=== PATIENT | male | born 1930 | race African-American/Black ===

== ENCOUNTER 2017-02-08 07:55 | Inpatient (IN) | payer MEDICARE, BC, OTHER ==
[~2017-02-08] VITALS: Ht 182.9 cm; Wt 105.2 kg
[2017-02-08] VITALS (10 sets, daily range): BP systolic 149–216; BP diastolic 67–86; PULSE 57–66; RESP 16–20; TEMP 97.5–98.4; O2SAT 96–100
[~2017-02-08 07:55] MED LIST: ASPI81CH5 PO; BUME2TAB PO; BYST10TA2 PO; CARD8TAB6 PO; FISH1000 PO; FLUO.05%ST TOP; IRBE1TAB39 PO; LIPI40TA PO; MAGN1SOL2 PO; MIRA33502 PO; MULTCAP14 PO; POLY119S PO; PRIL20CA PO; PROC60TA PO; SENN-29 PO; ULOR40TA PO; ULTR50TA PO; VITD400 PO; XALA0.00 EACH EYE
[2017-02-08] MEDS ORDERED: FISH500C PO (08:24)
[2017-02-08] MEDS ORDERED: NIFE1TAB85 PO (08:24)
[2017-02-08] MEDS ORDERED: CARD8TAB2 PO (08:24)
[2017-02-08] MEDS ORDERED: CHOL100025 CHEW (08:24)
[2017-02-08] MEDS ORDERED: LATA0.002 EACH EYE (08:24)
[2017-02-08] MEDS ORDERED: THER50TA3 PO (08:24)
[2017-02-08] MEDS ORDERED: BUME2TAB PO (08:24)
[2017-02-08] MEDS ORDERED: ASPI81CH CHEW (08:24)
[2017-02-08] MEDS ORDERED: LIPI40TA PO (08:24)
[2017-02-08] MEDS ORDERED: ULOR40TA PO (08:24)
[2017-02-08] MEDS ORDERED: OMEP20TA PO (08:24)
[2017-02-08] MEDS ORDERED: IRBE300T44 PO (08:24)
[2017-02-08] MEDS ORDERED: SODIUM CHLORIDE 0.9% FLUSH 10 ML FLUSH IV FLUSH PRN (08:45)
--- NOTE | 2017-02-08 08:46 | PD ---
HPI Chief Complaint: Abdominal Pain Time Seen by Provider: 08:40 Travel History International Travel<30 days: No Contact w/Intl Traveler<30days: No Traveled to known affect area: No History of Present Illness HPI Patient presents with acute onset of lower abdominal pain yesterday afternoon after a bowel movement. Reports increased flatulence over the last week. States his bowels are not normal but can be no more specific than that. Denies any urinary symptoms. Taking fluids and food by mouth. Pain is dull with occasional sharp pain 8 out of 10. Large vertical surgical scar noted to the right of midline which patient states was from an appendectomy in the s. History of renal failure on dialysis. Next dialysis scheduled for 9 AM tomorrow. PFSH Past Medical History Arthritis: Yes Cancer: No Cardiovascular Problems: Yes High Cholesterol: Yes Diabetes: Yes Patient Takes Glucophage: No Dialysis: Yes Diminished Hearing: No Endocrine: No Gastrointestinal Disorders: Yes (REFLUX) GERD: Yes Genitourinary: No Hepatitis: No Hiatal Hernia: No Hypertension: Yes Immune Disorder: No Musculoskeletal: Yes (ARTHRITIS) Neurologic: No Psychiatric: No Reproductive: No Respiratory: Yes (SLEEP APNEA) Renal Failure: Yes Sleep Apnea: Yes Thyroid Disease: No Influenza Vaccination: No Past Surgical History Abdominal Surgery: Yes (APPEND., ) AICD: No Appendectomy: Yes (1980) Eye Surgery: Yes (CATARACT BILAT.) Joint Replacement: Yes (RIGHT KNEE) Pacemaker: No Social History Alcohol Use: Yes (ONCE A MONTH) Tobacco Use: No Substance Use: No Allergies-Medications (Allergen,Severity, Reaction): Coded Allergies: Darvocet-N 100 (Verified Allergy, Intermediate, ITCHING, 02/08/17) Ibuprofen (Verified Allergy, Intermediate, swelling, itching, 02/08/17) Morphine (Verified Allergy, Intermediate, itch, 02/08/17) Reported Meds & Prescriptions Reported Meds & Active Scripts Active Reported Vitamin D3 (Cholecalciferol) 1,000 Unit Chew 1,000 Units CHEW DAILY Theragran-M Premier 50+ Caplet (Mv-Mn/FA/Coq10/Lycopene/Lutein) 1 Each Tablet 1 Tab PO DAILY Fish Oil ([place]-3 Fatty Acids) 500 Mg Cap 1 Cap PO DAILY Latanoprost Opth Drops (Latanoprost) 0.005% Drops 1 Drop EACH EYE HS Refrigerate until opened. Aspirin 81 Mg Chew 81 Mg CHEW DAILY Omeprazole 20 Mg Tab 20 Mg PO DAILY Uloric (Febuxostat) 40 Mg Tab 1 Tab PO DAILY Bumetanide 2 Mg Tab 4 Mg PO BID Lipitor (Atorvastatin Calcium) 40 Mg Tab 40 Mg PO HS Procardia XL (Nifedipine) 30 Mg Tab 30 Mg PO DAILY Cardura (Doxazosin Mesylate) 8 Mg Tab 8 Mg PO HS Avapro (Irbesartan) 300 Mg Tab 300 Mg PO DAILY Review of Systems General / Constitutional: No: Fever Eyes: No: Visual changes HENT: No: Headaches Cardiovascular: No: Chest Pain or Discomfort Respiratory: No: Shortness of Breath Gastrointestinal: Positive: Abdominal Pain Genitourinary: No: Dysuria Musculoskeletal: No: Pain Skin: No Rash Neurologic: No: Weakness Psychiatric: No: Depression Endocrine: No: Polydipsia Hematologic/Lymphatic: No: Easy Bruising Physical Exam Narrative GENERAL: Well-nourished, well-developed patient. SKIN: Focused skin assessment warm/dry. HEAD: Normocephalic. EYES: No scleral icterus. No injection or drainage. NECK: Supple, trachea midline. No JVD or lymphadenopathy. CARDIOVASCULAR: Regular rate and rhythm without murmurs, gallops, or rubs. RESPIRATORY: Breath sounds equal bilaterally. No accessory muscle use. GASTROINTESTINAL: Abdomen soft, diffusely tender across the lower abdomen, distended. MUSCULOSKELETAL: No cyanosis, or edema. BACK: Nontender without obvious deformity. No CVA tenderness. Data Data Last Documented VS Vital Signs Date Time Temp Pulse Resp B/P Pulse Ox O2 Delivery O2 Flow Rate FiO2 02/08/17 11:33 57 20 170/86 97 02/08/17 08:01 98.2 Room Air Orders Complete Blood Count With Diff (02/08/17 08:40) Comprehensive Metabolic Panel (02/08/17 08:40) Lipase (02/08/17 08:40) Lactic Acid (02/08/17 08:40) Urinalysis - C+S If Indicated (02/08/17 08:40) Ct Abd/Pel W Iv Contrast(Rout) (02/08/17 08:40) Iv Access Insert/Monitor (02/08/17 08:40) Ecg Monitoring (02/08/17 08:40) Oximetry (02/08/17 08:40) NPO (02/08/17 08:40) Sodium Chloride 0.9% Flush (Ns Flush) (02/08/17 08:45) Iohexol 350 Inj (Omnipaque 350 Inj) (02/08/17 10:32) Aspirin Chew (Aspirin Chew) (02/09/17 09:00) Atorvastatin (Lipitor) (02/08/17 21:00) Doxazosin (Cardura) (02/08/17 21:00) Latanoprost 0.005% Opth Soln (Xalatan 0. (02/08/17 21:00) Nifedipine Sr (Procardia Xl) (02/09/17 09:00) Patient Own Medication (02/09/17 09:00) Losartan (Cozaar) (02/09/17 09:00) Pantoprazole (Protonix) (02/09/17 09:00) Admit Order (Ed Use Only) (02/08/17 ) Diet Npo (02/08/17 Lunch) Activity Bed Rest With Brp (02/08/17 11:53) ^ Saline Lock (02/08/17 11:53) Resp Oxygen Kevin C Titrat 1-4 L (02/08/17 ) Notify Dr: Other (02/08/17 11:53) Consult Nephrology (02/08/17 11:53) Labs Laboratory Tests Test 02/08/17 08:55 White Blood Count 7.7 TH/MM3 Red Blood Count 3.32 MIL/MM3 Hemoglobin 10.7 GM/DL Hematocrit 32.9 % Mean Corpuscular Volume 98.9 FL Mean Corpuscular Hemoglobin 32.3 PG Mean Corpuscular Hemoglobin 32.6 % Concent Red Cell Distribution Width 12.8 % Platelet Count 263 TH/MM3 Mean Platelet Volume 8.8 FL Neutrophils (%) (Auto) 83.0 % Lymphocytes (%) (Auto) 9.9 % Monocytes (%) (Auto) 6.7 % Eosinophils (%) (Auto) 0.0 % Basophils (%) (Auto) 0.4 % Neutrophils # (Auto) 6.4 TH/MM3 Lymphocytes # (Auto) 0.8 TH/MM3 Monocytes # (Auto) 0.5 TH/MM3 Eosinophils # (Auto) 0.0 TH/MM3 Basophils # (Auto) 0.0 TH/MM3 CBC Comment DIFF FINAL Differential Comment Sodium Level 139 MEQ/L Potassium Level 4.2 MEQ/L Chloride Level 104 MEQ/L Carbon Dioxide Level 25.9 MEQ/L Anion Gap 9 MEQ/L Blood Urea Nitrogen 24 MG/DL Creatinine 7.20 MG/DL Estimat Glomerular Filtration 9 ML/MIN Rate Random Glucose 108 MG/DL Lactic Acid Level 1.1 mmol/L Calcium Level 9.9 MG/DL Total Bilirubin 0.5 MG/DL Aspartate Amino Transf 15 U/L (AST/SGOT) Alanine Aminotransferase 12 U/L (ALT/SGPT) Alkaline Phosphatase 59 U/L Total Protein 7.3 GM/DL Albumin 3.6 GM/DL Lipase 140 U/L [facility] Medical Decision Making Medical Screen Exam Complete: Yes Emergency Medical Condition: Yes Differential Diagnosis Colitis, diverticulitis, small bowel obstruction, UTI, adhesions Narrative Course Assessment and plan discussed with patient and at bedside. Last 72 hours Impressions Abdomen/Pelvis CT 02/08/17 0840 Signed Impressions: Service Date/Time: Wednesday, February 08, 2017 10:15 - CONCLUSION: 1. Findings of concern for early or partial small bowel obstruction in the distal to mid ileum. No visualized mass is identified. 2. The kidneys are small and atrophic in appearance with no hydronephrosis. 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 3. No free air or fluid. Dayron Dan MD Physician Communication Physician Communication Spoke with Dr. Boyce who is in agreement will admit for observation Diagnosis Primary Impression: SBO (small bowel obstruction) Perry Phelps MD Feb 08, 2017 08:46
[2017-02-08 09:03] LABS: AUTOMATED NEUTROPHIL # 6.4 TH/MM3 (1.8-7.7); BASOPHIL % 0.4 % (0.0-2.0); HEMATOCRIT 32.9 % (39.0-51.0); LYMPH % 9.9 % (9.0-44.0); LYMPHOCYTE # 0.8 TH/MM3 (1.0-4.8); MEAN CELL VOLUME 98.9 FL (80.0-100.0); MEAN CORPUSCULAR HEMOGLOBIN 32.3 PG (27.0-34.0); MEAN CORPUSCULAR HGB CONC 32.6 % (32.0-36.0); MONO % 6.7 % (0.0-8.0); PLATELET COUNT 263 TH/MM3 (150-450); RED BLOOD COUNT 3.32 MIL/MM3 (4.50-5.90); RED CELL DISTRIBUTION WIDTH 12.8 % (11.6-17.2); WHITE BLOOD COUNT 7.7 TH/MM3 (4.0-11.0)
[2017-02-08 09:07] LABS: HEMO FLAGS DIFF FINAL
[2017-02-08 09:10] LABS: CHLORIDE 104 MEQ/L (98-107); POTASSIUM 4.2 MEQ/L (3.5-5.1); SODIUM (NA) 139 MEQ/L (136-145)
[2017-02-08 09:14] LABS: ANION GAP 9 MEQ/L (5-15); BICARBONATE 25.9 MEQ/L (21.0-32.0); BLOOD UREA NITROGEN 24 MG/DL (7-18)
[2017-02-08 09:17] LABS: ALT (GPT) 12 U/L (12-78); AST (GOT) 15 U/L (15-37); GLOMERULAR FILTRATION RATE 9 ML/MIN (>89)
[2017-02-08 09:19] LABS: TOTAL BILIRUBIN ADULT 0.5 MG/DL (0.2-1.0)
[2017-02-08 09:20] LABS: ALKALINE PHOSPHATASE 59 U/L (45-117)
[2017-02-08] MEDS ORDERED: IOHEXOL 350 MG/ML 10 ML VIAL (for RAD DIAG) IV ONE (10:32)
--- NOTE | 2017-02-08 10:44 | RADRPT ---
EXAM DATE/TIME: 02/08/2017 10:15 [place] COMPARISON: No previous studies available for comparison. INDICATIONS : Lower abdominal pain and nausea. IV CONTRAST: 95 cc Omnipaque 350 (iohexol) IV ORAL CONTRAST: No oral contrast ingested. RADIATION DOSE: 20.32 CTDIvol (mGy) MEDICAL HISTORY : Hypertension. Diabetes. Renal failure-dialysis SURGICAL HISTORY : Appendectomy. ENCOUNTER: Initial ACUITY: 2 days PAIN SCALE: 4/10 LOCATION: Bilateral lower quadrant TECHNIQUE: Volumetric scanning of the abdomen and pelvis was performed. Using automated exposure control and ad justment of the mA and/or kV according to patient size, radiation dose was kept as low as reasonably achievable to obtain optimal diagnostic quality images. DICOM format image data is available electro nically for review and comparison. FINDINGS: LOWER LUNGS: The visualized lower lungs are clear. LIVER: Homogeneous density without lesion. There is no dilation of the biliary tree. No calcified gallston es. SPLEEN: Normal size without lesion. PANCREAS: Within normal limits. KIDNEYS: The kidneys are small and atrophic in appearance with no renal calculi or obstruction. 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 ADRENAL GLANDS: Within normal limits. VASCULAR: There is no aortic aneurysm. BOWEL/MESENTERY: The stomach is mildly distended with fluid. There are multiple loops of nondilated air-containing sma ll bowel with multiple air-fluid levels. The distal ileum and colon are decompressed. There is an henry arent transition zone in the right lower quadrant in the mid to distal ileum with no focal mass. ABDOMINAL WALL: Within normal limits. RETROPERITONEUM: There is no lymphadenopathy. BLADDER: No wall thickening or mass. REPRODUCTIVE: Within normal limits. INGUINAL: There is no lymphadenopathy or hernia. MUSCULOSKELETAL: Degenerative changes are noted in the left hip with subchondral cyst formation. There is mild scolios is and degenerative changes in the lumbar spine. CONCLUSION: 1. Findings of concern for early or partial small bowel obstruction in the distal to mid ileum. No vi sualized mass is identified. 2. The kidneys are small and atrophic in appearance with no hydronephrosis. There is partial duplicat ion of left collecting system. 3. No free air or fluid. Dayron Dan MD on February 08, 2017 at 10:36 Board Certified Radiologist. This report was verified electronically.
[2017-02-08] MEDS ORDERED: D5-1/2 NS + KCL 20 MEQ INJ 1,000 ML IV SCH (11:54)
[2017-02-08] MEDS ORDERED: ACETAMINOPHEN 650 MG SUPP RECTAL PRN (12:00)
[2017-02-08] MEDS ORDERED: ONDANSETRON HCL 4 MG/2 ML VIAL IV PRN (12:00)
[2017-02-08] MEDS: cloNIDine HCL 0.1 MG TAB PO PRN ×2 (14:37→20:08)
[2017-02-08] MEDS: DEXT 5%-NACL 0.9% 1000 ML INJ 1,000 ML IV SCH (14:43)
--- NOTE | 2017-02-08 14:59 | HHI.HP ---
[facility] Derek Juarez MD Admission Diagnosis PSBO Diagnoses: Chief Complaint: Abdominal pain Travel History International Travel<30 Days: No Contact w/Intl Traveler <30 Da: No Traveled to Known Affected Are: No History of Present Illness 87-year-old male with a medical history significant for end-stage renal disease on hemodialysis, hypertension, osteoarthritis who presented to the hospital with complaint of abdominal pain. He reports that his abdomen has not felt right for the past 2 days. He took senna laxative yesterday and had a bowel movement but he continued to have intermittent abdominal cramps. He endorsed some nausea but no vomiting. No fevers or chills. Workup in the emergency room revealed partial small bowel obstruction. Review of Systems Constitutional: DENIES: Fever, Chills Respiratory: DENIES: Cough, Shortness of breath Cardiovascular: DENIES: Chest pain Gastrointestinal: COMPLAINS OF: Abdominal pain, Constipation, Nausea, DENIES: Black stools, Bloody stools, Diarrhea, Vomiting Except as stated in HPI: all other systems reviewed are Neg Past Family Social History Past Medical History end-stage renal disease on hemodialysis hypertension osteoarthritis Past Surgical History Appendectomy in the 80s Right knee arthroplasty Reported Medications Reported Meds & Active Scripts Active Reported Vitamin D3 (Cholecalciferol) 1,000 Unit Chew 1,000 Units CHEW DAILY Theragran-M Premier 50+ Caplet (Mv-Mn/FA/Coq10/Lycopene/Lutein) 1 Each Tablet 1 Tab PO DAILY Fish Oil ([place]-3 Fatty Acids) 500 Mg Cap 1 Cap PO DAILY Latanoprost Opth Drops (Latanoprost) 0.005% Drops 1 Drop EACH EYE HS Refrigerate until opened. Aspirin 81 Mg Chew 81 Mg CHEW DAILY Omeprazole 20 Mg Tab 20 Mg PO DAILY Uloric (Febuxostat) 40 Mg Tab 1 Tab PO DAILY Bumetanide 2 Mg Tab 4 Mg PO BID Lipitor (Atorvastatin Calcium) 40 Mg Tab 40 Mg PO HS Procardia XL (Nifedipine) 30 Mg Tab 30 Mg PO DAILY Cardura (Doxazosin Mesylate) 8 Mg Tab 8 Mg PO HS Avapro (Irbesartan) 300 Mg Tab 300 Mg PO DAILY Allergies: Coded Allergies: Darvocet-N 100 (Verified Allergy, Intermediate, ITCHING, 02/08/17) Ibuprofen (Verified Allergy, Intermediate, swelling, itching, 02/08/17) Morphine (Verified Allergy, Intermediate, itch, 02/08/17) Family History Father of heart disease. 2 brothers of complications from diabetes. Social History No tobacco or alcohol Physical Exam Vital Signs Vital Signs Date Time Temp Pulse Resp B/P Pulse Ox O2 Delivery O2 Flow Rate FiO2 02/08/17 14:00 97.5 59 19 216/85 97 186/80 02/08/17 11:33 57 20 170/86 97 02/08/17 10:42 59 20 149/67 98 02/08/17 09:53 63 18 160/74 97 02/08/17 09:01 60 20 158/71 97 02/08/17 08:58 96 02/08/17 08:01 98.2 66 16 172/75 98 Room Air Physical Exam GENERAL: Elderly male in no apparent distress. SKIN: No rashes, ecchymoses or lesions. Cool and dry. HEAD: Atraumatic. Normocephalic. No temporal or scalp tenderness. EYES: Pupils equal round and reactive. Extraocular motions intact. No scleral icterus. No injection or drainage. ENT: Nose without bleeding, purulent drainage or septal hematoma. Throat without erythema, tonsillar hypertrophy or exudate. Uvula midline. Airway patent. NECK: Trachea midline. No JVD or lymphadenopathy. Supple, nontender, no meningeal signs. CARDIOVASCULAR: Regular rate and rhythm without murmurs, gallops, or rubs. RESPIRATORY: Clear to auscultation. Breath sounds equal bilaterally. No wheezes , rales, or rhonchi. GASTROINTESTINAL: Abdomen soft, mild tenderness to palpation mostly in the periumbilical region. No guarding. MUSCULOSKELETAL: Extremities without clubbing, cyanosis, or edema. No joint tenderness, effusion, or edema noted. No calf tenderness. Negative Homans sign bilaterally. NEUROLOGICAL: Awake and alert. Cranial nerves II through XII intact. Motor and sensory grossly within normal limits. Five out of 5 muscle strength in all muscle groups. Normal speech. Laboratory Laboratory Tests Test 02/08/17 08:55 White Blood Count 7.7 Red Blood Count 3.32 Hemoglobin 10.7 Hematocrit 32.9 Mean Corpuscular Volume 98.9 Mean Corpuscular Hemoglobin 32.3 Mean Corpuscular Hemoglobin 32.6 Concent Red Cell Distribution Width 12.8 Platelet Count 263 Mean Platelet Volume 8.8 Neutrophils (%) (Auto) 83.0 Lymphocytes (%) (Auto) 9.9 Monocytes (%) (Auto) 6.7 Eosinophils (%) (Auto) 0.0 Basophils (%) (Auto) 0.4 Neutrophils # (Auto) 6.4 Lymphocytes # (Auto) 0.8 Monocytes # (Auto) 0.5 Eosinophils # (Auto) 0.0 Basophils # (Auto) 0.0 CBC Comment DIFF FINAL Differential Comment Sodium Level 139 Potassium Level 4.2 Chloride Level 104 Carbon Dioxide Level 25.9 Anion Gap 9 Blood Urea Nitrogen 24 Creatinine 7.20 Estimat Glomerular Filtration 9 Rate Random Glucose 108 Lactic Acid Level 1.1 Calcium Level 9.9 Total Bilirubin 0.5 Aspartate Amino Transf 15 (AST/SGOT) Alanine Aminotransferase 12 (ALT/SGPT) Alkaline Phosphatase 59 Total Protein 7.3 Albumin 3.6 Lipase 140 Result Diagram: 02/08/17 0855 02/08/17 0855 Imaging Last Impressions Abdomen/Pelvis CT 02/08/17 0840 Signed Impressions: Service Date/Time: Wednesday, February 08, 2017 10:15 - CONCLUSION: 1. Findings of concern for early or partial small bowel obstruction in the distal to mid ileum. No visualized mass is identified. 2. The kidneys are small and atrophic in appearance with no hydronephrosis. 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 3. No free air or fluid. Dayron Dan MD Assessment and Plan Problem List: (1) SBO (small bowel obstruction) ICD Code: K56.69 Status: Acute Plan: CT scan Findings concerning for bowel obstruction in the distal to mid ileum Symptoms are currently mild. NPO, gentle IV fluid Pain control Stool softeners and laxatives. Monitor clinically. (2) ESRD (end stage renal disease) on dialysis ICD Code: N18.6 Status: Acute Plan: Nephrology consulted. Next hemodialysis is due tomorrow. (3) HTN (hypertension) ICD Code: I10 Status: Acute Plan: Uncontrolled. Continue losartan, nifedipine, clonidine as needed. Discussed with RN, he was just given a dose of clonidine. Blood pressure improving. Discussed Condition With Bandar Childs MD Feb 08, 2017 14:59
[2017-02-08] MEDS ORDERED: LACTULOSE SYRUP 20 GM/30 ML CUP PO ONE (15:00)
[2017-02-08] MEDS ORDERED: MAGNESIUM HYDROXIDE SUSP 30 ML CUP PO PRN (15:15)
[2017-02-08] MEDS ORDERED: LACTULOSE SYRUP 20 GM/30 ML CUP PO PRN (15:15)
[2017-02-08] MEDS ORDERED: BISACODYL 10 MG SUPP RECTAL PRN (15:15)
--- NOTE | 2017-02-08 15:53 | MB ---
cc: MUSTAPHA PLUMMER MD DATE OF CONSULTATION: 02/08/2017. REASON FOR CONSULTATION: End-stage renal disease on hemodialysis for management. HISTORY OF PRESENT ILLNESS: This is an 87-year-old male with past medical history of end-stage renal disease who has been on hemodialysis since 2014, history of ischemic heart disease, hyperlipidemia, diabetes mellitus, gastroesophageal reflux disease, hypertension, sleep apnea, who came to the hospital with complaint of abdominal pain. I was called to see the patient for management of dialysis. He has been on hemodialysis on Thursday, Thursday and Thursday and has following with Dr. Derek Juarez. The last treatment he had was on Thursday. He has had this abdominal pain going on for the last two to three days. There is no history of diarrhea. His last bowel movement was about four or five days ago. There is no history of nausea or vomiting. He is still passing some urine. There is no dysuria or hematuria. The abdominal pain is intermittent and around the umbilicus and also on the right iliac fossa. There is no shortness of breath. No chest pain. No palpitations. PAST MEDICAL HISTORY: 1. Hypertension. 2. Diabetes mellitus. 3. Hyperlipidemia. 4. Ischemic heart disease. 5. End-stage renal disease on hemodialysis. 6. Gastroesophageal reflux disease (GERD). 7. Sleep apnea. PAST SURGICAL HISTORY: 1. Appendectomy. 2. Cataract surgery. 3. AV fistula surgery. 4. Right knee replacement. REVIEW OF SYSTEMS: There is no history of fever. No sore throat. He denies any headache, dizziness or blurring of vision. No shortness of breath. No chest pain. No nausea or vomiting. He has had abdominal pain, which is mainly cramping in nature. There is no history of diarrhea. He has had constipation for the last four or five days. There is no dysuria or hematuria or difficulty in passing urine. SOCIAL HISTORY: The patient has no history of smoking. He occasionally has alcoholic beverages. FAMILY HISTORY: The family history is noncontributory. ALLERGIES: 1. DARVOCET. 2. IBUPROFEN. 3. MORPHINE. MEDICATIONS: Currently he is on: 1. IV fluids with potassium chloride at 75 an hour. 2. Aspirin 81 milligrams once a day. 3. Nifedipine 30 milligrams daily. 4. Losartan 100 milligrams once a day. 5. Protonix 20 milligrams daily. 6. Atorvastatin 40 milligrams once a day. 7. Cozaar 80 milligrams at bedtime. 8. Zofran 4 milligrams PRN. PHYSICAL EXAMINATION: GENERAL: On examination, the patient is awake and alert and he is not in acute distress. VITAL SIGNS: His last blood pressure was 216/85, temperature is 97.5, oxygen saturation is 97%. HEAD, EYES, EARS, NOSE, THROAT: The pupils are equal and reacting to light. Nonicteric sclerae. Conjunctivae are pale. NECK: The neck is supple. JVD is not elevated. LUNGS: The patient has bilateral good air entry with occasional wheezing. HEART: S1 and S2 regular rhythm. ABDOMEN: Abdomen distended, soft and lax. There is an umbilical hernia which is reducible. There is a scar of right sided appendectomy. There is mild tenderness around the right scar in the right iliac fossa but there is no rebound or rigidity. Bowel sounds are positive. EXTREMITIES: There is no edema in the legs. INVESTIGATIONS: White blood cell count is 7.7, hemoglobin 10.7, platelet count of 263,000. Neutrophils 83%. Sodium 139, potassium 4.2, chloride 104, bicarbonate 25.9, BUN 24, creatinine 7.2, calcium 9.9, lactic acid is 1.1. AST and ALT are normal. Total protein is 7.3 with albumin of 3.6. Lipase is 140. INR is 1.0. Urinalysis not done. IMAGING STUDIES: The patient had CT scan of the abdomen and pelvis done, which showed that he has early or partial small bowel obstruction at the distal to mid ileum. The kidneys are small and atrophic. 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 No free air. ASSESSMENT: 1. Abdominal pain, possible partial small bowel obstruction. 2. End-stage renal disease on hemodialysis. 3. Hypertension, uncontrolled. 4. History of ischemic heart disease. 5. Anemia. The patient has been diagnosed with possible small bowel obstruction. He is NPO. His getting IV fluids with dextrose with potassium chloride. I will change it to without potassium chloride. The blood pressure is on the higher side. He is on Cozaar 100 mg an nifedipine 30 mg daily. I will put him on clonidine p.r.n. and increase his nifedipine to 90 mg. The patient is due for hemodialysis tomorrow. There is no acute urgent need for dialysis at present. I will ask Dr. Maki to follow the patient from tomorrow. Thank you for the consultation MD GENARO Church/ANDERSON /2:09 PM /3:28 PM
[2017-02-08] MEDS: DOXAZOSIN MESYLATE 4 MG TAB PO SCH (20:08)
[2017-02-08] MEDS: ATORVASTATIN 40 MG TAB PO SCH (20:08)
[2017-02-08] MEDS: DOCUSATE SODIUM 50 MG/SENNA 8.6 MG TAB PO SCH (20:09)
[2017-02-08] MEDS: LATANOPROST 0.005% OPHT SOLN 2.5 ML BTL EACH EYE SCH (20:53)
[2017-02-09] VITALS (7 sets, daily range): BP systolic 149–189; BP diastolic 74–90; PULSE 58–104; RESP 16–20; TEMP 97–98.2; O2SAT 94–98
[2017-02-09 06:51] LABS: POTASSIUM 4.4 MEQ/L (3.5-5.1)
[2017-02-09 06:53] LABS: AUTOMATED NEUTROPHIL # 6.1 TH/MM3 (1.8-7.7); BASOPHIL % 0.2 % (0.0-2.0); HEMO FLAGS DIFF FINAL; LYMPH % 16.5 % (9.0-44.0); LYMPHOCYTE # 1.3 TH/MM3 (1.0-4.8); MEAN CELL VOLUME 99.6 FL (80.0-100.0); MEAN CORPUSCULAR HGB CONC 32.2 % (32.0-36.0); MONO % 8.7 % (0.0-8.0); NEUT % 74.6 % (16.0-70.0); PLATELET COUNT 240 TH/MM3 (150-450); RED BLOOD COUNT 3.32 MIL/MM3 (4.50-5.90); RED CELL DISTRIBUTION WIDTH 12.9 % (11.6-17.2); WHITE BLOOD COUNT 8.1 TH/MM3 (4.0-11.0)
[2017-02-09 07:08] LABS: BICARBONATE 25.2 MEQ/L (21.0-32.0)
[2017-02-09] MEDS: LOSARTAN 50 MG TAB PO SCH (07:43)
[2017-02-09] MEDS: NIFEdipine 90 MG SUSTAINED RELEASE TAB PO SCH (09:00)
[2017-02-09] MEDS ORDERED: COQ10 PO SCH (09:00)
[2017-02-09] MEDS ORDERED: NIFEdipine 30 MG SUSTAINED RELEASE TAB PO SCH (09:00)
[2017-02-09] MEDS ORDERED: NON-FORMULARY DRUG (Omega-3 Fatty Acids (Fish Oil) 1 CAP) PO SCH (09:00)
[2017-02-09] MEDS ORDERED: [UNRECOGNIZED DRUG - OTHER] PO SCH (09:00)
[2017-02-09] MEDS: DOCUSATE SODIUM 50 MG/SENNA 8.6 MG TAB PO SCH ×2 (09:00→21:56)
[2017-02-09] MEDS ORDERED: ULORIC 40 MG PO SCH (09:00)
[2017-02-09] MEDS ORDERED: MV MN PO SCH (09:00)
[2017-02-09] MEDS: ASPIRIN 81 MG CHEW TAB CHEW SCH (09:00)
[2017-02-09] MEDS ORDERED: LYCOPENE PO SCH (09:00)
[2017-02-09] MEDS: PANTOPRAZOLE SOD 20 MG DELAYED RELEASE TAB PO SCH (09:00)
[2017-02-09] MEDS ORDERED: LUTEIN PO SCH (09:00)
--- NOTE | 2017-02-09 09:32 | HHI.PR ---
Subjective Remarks Patient reportedly had 2 bowel movements last night. He reports the abdominal pain is improved this morning. However the KUB actually showed worsening bowel distention, increased from yesterday with concern for distal obstruction. No nausea or vomiting. Objective Vitals Vital Signs Date Time Temp Pulse Resp B/P Pulse Ox O2 Delivery O2 Flow Rate FiO2 02/09/17 04:01 97.6 58 20 168/76 97 02/09/17 00:57 97.1 73 16 179/90 98 02/08/17 20:51 98.4 59 18 180/71 96 02/08/17 16:00 97.9 60 18 194/81 100 182/78 02/08/17 14:59 100 21 02/08/17 14:00 97.5 59 19 216/85 97 186/80 02/08/17 11:33 57 20 170/86 97 02/08/17 10:42 59 20 149/67 98 02/08/17 09:53 63 18 160/74 97 I/O 02/08/17 02/08/17 02/08/17 02/09/17 02/09/17 02/09/17 06:59 14:59 22:59 06:59 14:59 22:59 Intake Total 336 ml 336 ml Balance 336 ml 336 ml Intake IV Total 336 ml 336 ml # Voids 2 Result Diagram: 02/09/17 0533 02/09/17 0533 Imaging Last Impressions Abdomen X-Ray 02/09/17 0000 Signed Impressions: Service Date/Time: Thursday, February 09, 2017 07:44 - CONCLUSION: Abnormally dilated small bowel measuring up to 4.1 cm, slightly increased from yesterday' s examination. Based on the current appearance and yesterday's CT, findings are suspicious for some degree of distal small bowel obstruction. Omid Escobar MD Abdomen/Pelvis CT 02/08/17 0840 Signed Impressions: Service Date/Time: Wednesday, February 08, 2017 10:15 - CONCLUSION: 1. Findings of concern for early or partial small bowel obstruction in the distal to mid ileum. No visualized mass is identified. 2. The kidneys are small and atrophic in appearance with no hydronephrosis. 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 3. No free air or fluid. Dayron Dan MD Objective Remarks GENERAL: This is a well-nourished, well-developed patient, in no apparent distress. CARDIOVASCULAR: Normal rate and regular rhythm without murmurs, gallops, or rubs. RESPIRATORY: Good respiratory efforts. Breath sounds equal and clear to auscultation bilaterally. GASTROINTESTINAL: Abdomen soft, mild tenderness to palpation in the periumbilical region. Normal active bowel sounds MUSCULOSKELETAL: Extremities without cyanosis, or edema. NEURO: Alert & Oriented x4 to person, place, time, situation. Moves all ext x4 PSYCH: Appropriate mood and affect. A/P Problem List: (1) SBO (small bowel obstruction) ICD Code: K56.69 Status: Acute Plan: CT scan Findings concerning for bowel obstruction in the distal to mid ileum. Symptoms are currently mild. However repeat abdominal x-ray this morning show worsening of bowel distention. Keep NPO, gentle IV fluid Pain control Stool softeners and laxatives. Monitor clinically. (2) ESRD (end stage renal disease) on dialysis ICD Code: N18.6 Status: Acute Plan: Nephrology following for HD. Hemodialysis today. (3) HTN (hypertension) ICD Code: I10 Status: Acute Plan: Uncontrolled but improved. Pain may be contributing. Continue losartan, nifedipine, clonidine as needed. Nifedipine increased per nephrology. Discharge Planning Admit to inpatient. He is on hemodialysis, uncontrolled hypertension admitted with a bowel obstruction. Bandar Boyce MD Feb 09, 2017 09:32
--- NOTE | 2017-02-09 09:37 | RADRPT ---
EXAM DATE/TIME: 02/09/2017 07:44 [facility] COMPARISON: CT ABDOMEN & PELVIS W CONTRAST, February 08, 2017, 10:15. INDICATIONS : Abdominal pain; obstruction. MEDICAL HISTORY : Hypertension. Diabetes. Renal failure-dialysis SURGICAL HISTORY : Appendectomy. ENCOUNTER: Subsequent ACUITY: 3 days PAIN SCORE: 7/10 LOCATION: Lower abdomen. FINDINGS: 3 supine frontal views of the abdomen demonstrate abnormally dilated small bowel measuring up to 4.1 cm. There is a small amount of colon gas present. The dilated small bowel appears mildly increased fr om yesterday's examination. No organomegaly is present. There is osteoarthritis at the right hip join t. No acute osseous finding is identified. CONCLUSION: Abnormally dilated small bowel measuring up to 4.1 cm, slightly increased from yesterday's examinatio n. Based on the current appearance and yesterday's CT, findings are suspicious for some degree of dis poppy small bowel obstruction. Omid Escobar MD on February 09, 2017 at 9:14 Board Certified Radiologist. This report was verified electronically.
[2017-02-09] MEDS ORDERED: SODIUM CHLOR 0.9% 1000 ML INJ 1,000 ML IV PRN ×3 (09:38)
[2017-02-09] MEDS ORDERED: ACETAMINOPHEN 325 MG TAB PO PRN (09:45)
[2017-02-09] MEDS ORDERED: HEPARIN SODIUM - IV 10,000 UNITS/10 ML VIAL IVF PRN (09:45)
[2017-02-09] MEDS ORDERED: SODIUM CHLORIDE 0.9% FLUSH 10 ML FLUSH IV FLUSH PRN (09:45)
[2017-02-09] MEDS ORDERED: GENTAMICIN SULFATE (DIALYSIS USE ONLY) 20 MG/2 ML VIAL IV PRN (09:45)
[2017-02-09] MEDS ORDERED: HEPARIN SODIUM - IV 10,000 UNITS/10 ML VIAL PRN (09:45)
[2017-02-09] MEDS ORDERED: ALBUMIN HUMAN 25% 25 GM/100 ML BAGP IV PRN (09:45)
[2017-02-09] MEDS ORDERED: MANNITOL 12.5 GM/50 ML VIAL IV PRN (09:45)
[2017-02-09] MEDS ORDERED: diphenhydrAMINE HCL 25 MG CAP PO PRN (09:45)
[2017-02-09] MEDS ORDERED: GELATIN 12 MM/7 MM FOAM TOP PRN (09:45)
[2017-02-09] MEDS ORDERED: cloNIDine HCL 0.1 MG TAB PO PRN (09:45)
[2017-02-09] MEDS ORDERED: ONDANSETRON HCL 4 MG/2 ML VIAL IV PRN (09:45)
[2017-02-09] MEDS ORDERED: NITROGLYCERIN 0.4 MG SL 25 TABS/BTL SL PRN (09:45)
[2017-02-09] MEDS: DEXT 5%-NACL 0.9% 1000 ML INJ 1,000 ML IV SCH ×2 (14:04→21:56)
[2017-02-09] MEDS: EPOETIN ALFA 10,000 UNITS/ML VIAL IV PRN (15:14)
--- NOTE | 2017-02-09 17:21 | HHI.NPPN ---
Subjective General Problems: Anemia, Hypertension Renal Failure: Chronic, End Stage Renal Disease Interval History Seen during dialysis. He had a BM last night. No reports of pain. (Marlena Ambriz) Objective Data Data 02/08/17 02/09/17 18:59 06:59 Intake Total 672 ml Balance 672 ml Intake IV Total 672 ml # Voids 2 Vital Signs Date Time Temp Pulse Resp B/P Pulse Ox O2 Delivery O2 Flow Rate FiO2 02/09/17 12:00 97.0 104 20 149/77 96 02/09/17 11:34 94 21 02/09/17 08:00 98.2 63 18 160/74 97 Automatic Cuff 02/09/17 04:01 97.6 58 20 168/76 97 02/09/17 00:57 97.1 73 16 179/90 98 02/08/17 20:51 98.4 59 18 180/71 96 (Marlena Ambriz) -: 02/09/17 0533 02/09/17 0533 Imaging Last Impressions Abdomen X-Ray 02/09/17 0000 Signed Impressions: Service Date/Time: Thursday, February 09, 2017 07:44 - CONCLUSION: Abnormally dilated small bowel measuring up to 4.1 cm, slightly increased from yesterday' s examination. Based on the current appearance and yesterday's CT, findings are suspicious for some degree of distal small bowel obstruction. Omid Escobar MD Abdomen/Pelvis CT 02/08/17 0840 Signed Impressions: Service Date/Time: Wednesday, February 08, 2017 10:15 - CONCLUSION: 1. Findings of concern for early or partial small bowel obstruction in the distal to mid ileum. No visualized mass is identified. 2. The kidneys are small and atrophic in appearance with no hydronephrosis. 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 3. No free air or fluid. Dayron Dan MD (Marlena Ambriz) Physical Exam General Appearance: Well Developed, Well Nourished, No Acute Distress, Comfortable ( Marlena Ambriz) Eyes Eye Exam: Pupils Equal (Marlena Ambriz) Throat Throat Exam: Oral Mucosa [place] & Moist (Marlena Ambriz) Neck Neck Exam: Neck Supple (Marlena Ambriz) Pulmonary Resp Exam: Clear Bilaterally, Breath Sounds Equal, No Distress (Marlena Ambriz) Cardiology CV Exam: Regular, Normal Sinus Rhythm, Good Perfusion (Marlena Ambriz) Gastrointestinal/Abdomen GI Exam: Soft, Non-Tender, Bowel Sounds Present, Positive Bowel Movement GI Remarks BM 02/08 (Marlena Ambriz) Musculoskeletal MS Exam: Joints Intact, Good Strength (Marlena Ambriz) Integumentary Skin Exam: Clear, Warm, Dry, Intact (Marlena Ambriz) Extremeties Extremities Exam: Pedal Pulses Palpable, Trace Edema Extremeties Remarks right arm AVF, accessed during HD (Marlena Ambriz) Neurologic Neuro Exam: Alert, Awake, Oriented, Speech Clear, Moving All Extremities ( Marlena Ambriz) Psychiatric Psych Exam: Appropriate Responses (Marlena Ambriz) Assessment/Plan Discussed Condition With: Patient Assessment Summary: Anemia of CKD, Hypertension, End Stage Renal Disease Problem List: (1) ESRD (end stage renal disease) on dialysis Plan: seen during dialysis today on a 3K, 300 BFR, goal 2.6 Liter UF maintain MWF HD schedule while hospitalized phosphorus is acceptable, he is not on binder therapy but has been NPO much of this admission avoid IVF unless NPO, gadolinium is contraindicated stable from renal perspective (2) SBO (small bowel obstruction) Plan: non surgical management he has had a BM (3) HTN (hypertension) Plan: continue home medications (Marlena Ambriz) Plan patient was admitted with abdominal pain. Dialysis will be continued MWF. May need to involve general surgery. (Daniel Maki MD) Marlena Ambriz Feb 09, 2017 17:21 Daniel Maki MD Feb 10, 2017 11:51
[2017-02-09] MEDS: LATANOPROST 0.005% OPHT SOLN 2.5 ML BTL EACH EYE SCH (21:56)
[2017-02-09] MEDS: ATORVASTATIN 40 MG TAB PO SCH (21:57)
[2017-02-09] MEDS: DOXAZOSIN MESYLATE 4 MG TAB PO SCH (21:57)
[2017-02-10] VITALS (7 sets, daily range): BP systolic 157–172; BP diastolic 71–81; PULSE 58–68; RESP 16–20; TEMP 97.5–98.3; O2SAT 94–97
[2017-02-10] MEDS: NIFEdipine 90 MG SUSTAINED RELEASE TAB PO SCH (09:08)
[2017-02-10] MEDS: PANTOPRAZOLE SOD 20 MG DELAYED RELEASE TAB PO SCH (09:08)
[2017-02-10] MEDS: ASPIRIN 81 MG CHEW TAB CHEW SCH (09:08)
[2017-02-10] MEDS: LOSARTAN 50 MG TAB PO SCH (09:08)
[2017-02-10] MEDS: DOCUSATE SODIUM 50 MG/SENNA 8.6 MG TAB PO SCH ×2 (09:08→20:58)
--- NOTE | 2017-02-10 09:24 | HHI.NPPN ---
Subjective General Problems: Anemia, Hypertension Renal Failure: Chronic, End Stage Renal Disease Interval History Sitting up on edge of bed. Reporting multiple bowel movements the past two days. He had dialysis yesterday. NPO at this time. (Marlena Ambriz) Objective Data Data 02/09/17 02/10/17 18:59 06:59 Intake Total 419 ml Output Total 2600 ml Balance -2600 ml 419 ml Intake IV Total 419 ml Output Hemodialysis 2600 ml Vital Signs Date Time Temp Pulse Resp B/P Pulse Ox O2 Delivery O2 Flow Rate FiO2 02/10/17 08:13 98.3 64 19 157/75 94 02/10/17 08:01 97 21 02/10/17 00:00 98.0 58 16 172/71 95 02/09/17 20:00 98.0 67 18 189/85 95 02/09/17 19:45 95 21 02/09/17 12:00 97.0 104 20 149/77 96 02/09/17 11:34 94 21 (Marlena Ambriz) -: 02/09/17 0533 02/09/17 0533 Imaging Last Impressions Abdomen X-Ray 02/09/17 0000 Signed Impressions: Service Date/Time: Thursday, February 09, 2017 07:44 - CONCLUSION: Abnormally dilated small bowel measuring up to 4.1 cm, slightly increased from yesterday' s examination. Based on the current appearance and yesterday's CT, findings are suspicious for some degree of distal small bowel obstruction. Omid Escobar MD Abdomen/Pelvis CT 02/08/17 0840 Signed Impressions: Service Date/Time: Wednesday, February 08, 2017 10:15 - CONCLUSION: 1. Findings of concern for early or partial small bowel obstruction in the distal to mid ileum. No visualized mass is identified. 2. The kidneys are small and atrophic in appearance with no hydronephrosis. 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 3. No free air or fluid. Dayron Dan MD (Marlena Ambriz) Physical Exam General Appearance: Well Developed, Well Nourished, No Acute Distress, Comfortable ( Marlena Ambriz) Eyes Eye Exam: Pupils Equal (Marlena Ambriz) Throat Throat Exam: Oral Mucosa [place] & Moist (Marlena Ambriz) Neck Neck Exam: Neck Supple (Marlena Ambriz) Pulmonary Resp Exam: Clear Bilaterally, Breath Sounds Equal, No Distress (Marlena Ambriz) Cardiology CV Exam: Regular, Normal Sinus Rhythm, Good Perfusion (Marlena Ambriz) Gastrointestinal/Abdomen GI Exam: Soft, Non-Tender, Bowel Sounds Present, Positive Bowel Movement GI Remarks BM 02/08 (Marlena Ambriz) Musculoskeletal MS Exam: Joints Intact, Good Strength (Marlena Ambriz) Integumentary Skin Exam: Clear, Warm, Dry, Intact (Marlena Ambriz) Extremeties Extremities Exam: Pedal Pulses Palpable, Trace Edema Extremeties Remarks right arm AVF, accessed during HD (Marlena Ambriz) Neurologic Neuro Exam: Alert, Awake, Oriented, Speech Clear, Moving All Extremities ( Marlena Ambriz) Psychiatric Psych Exam: Appropriate Responses (Marlena Ambriz) Assessment/Plan Discussed Condition With: Patient Assessment Summary: Anemia of CKD, Hypertension, End Stage Renal Disease Problem List: (1) ESRD (end stage renal disease) on dialysis Plan: 2.6 liters fluid removal yesterday he is NPO on IVF (D5NS), continue maintain MWF HD schedule while hospitalized phosphorus is acceptable, he is not on binder therapy but has been NPO much of this admission avoid IVF unless NPO, gadolinium is contraindicated stable from renal perspective obtain intermittent renal panel (2) SBO (small bowel obstruction) Plan: non surgical management he has had several BMs repeat imaging from yesterday does not show improvement (3) HTN (hypertension) Plan: continue home medications (Marlena Ambriz) Plan patient was seen and examined. Continue dialysis. He apparently has had bowel movements, but there is no documentation. (Daniel Maki MD) Marlena Ambriz Feb 10, 2017 09:24 Daniel Maki MD Feb 10, 2017 11:59
--- NOTE | 2017-02-10 12:03 | RADRPT ---
EXAM DATE/TIME: 02/10/2017 11:16 [facility] COMPARISON: ABDOMEN KUB ONLY, February 09, 2017, 7:44. INDICATIONS : Abdominal pain & distention becoming better after recent bowel movement. MEDICAL HISTORY : Hypercholesterolemia. Hypertension. Diabetes. Renal failure-dialysis. Arthritis. GERD. Sleep ap petra/ SURGICAL HISTORY : Appendectomy. Total knee replacement, right. ENCOUNTER: Subsequent ACUITY: 4 - 6 days PAIN SCORE: 2/10 LOCATION: abdomen FINDINGS: Supine view of the abdomen was performed. There continues to be dilated small bowel throughout the u pper abdomen measuring up to 4 cm. Dilated colon is not seen. Free air is not seen. There is cystic c hange at the right hip joint. CONCLUSION: Persistent dilated small bowel concerning for persistent obstruction. Omid Staley MD on February 10, 2017 at 11:58 Board Certified Radiologist. This report was verified electronically.
--- NOTE | 2017-02-10 14:01 | HHI.PR ---
Subjective Remarks Abdomen is still sore but pain is improved. He states he had a large bowel movement earlier today. No nausea or vomiting. KUB still showing persistent obstruction. Objective Vitals Vital Signs Date Time Temp Pulse Resp B/P Pulse Ox O2 Delivery O2 Flow Rate FiO2 02/10/17 12:21 97.5 64 19 160/76 95 02/10/17 08:13 98.3 64 19 157/75 94 02/10/17 08:01 97 21 02/10/17 00:00 98.0 58 16 172/71 95 02/09/17 20:00 98.0 67 18 189/85 95 02/09/17 19:45 95 21 I/O 02/09/17 02/09/17 02/09/17 02/10/17 02/10/17 02/10/17 07:00 15:00 23:00 07:00 15:00 23:00 Intake Total 336 ml 91 ml 328 ml Output Total 2600 ml Balance 336 ml -2509 ml 328 ml Intake IV Total 336 ml 91 ml 328 ml Output Hemodialysis 2600 ml Result Diagram: 02/09/17 0533 02/09/17 0533 Objective Remarks GENERAL: This is a well-nourished, well-developed patient, in no apparent distress. CARDIOVASCULAR: Normal rate and regular rhythm without murmurs, gallops, or rubs. RESPIRATORY: Good respiratory efforts. Breath sounds equal and clear to auscultation bilaterally. GASTROINTESTINAL: Abdomen soft, mild tenderness to palpation in the periumbilical region. Normal active bowel sounds MUSCULOSKELETAL: Extremities without cyanosis, or edema. NEURO: Alert & Oriented x4 to person, place, time, situation. Moves all ext x4 PSYCH: Appropriate mood and affect. A/P Problem List: (1) SBO (small bowel obstruction) ICD Code: K56.69 Status: Acute Plan: CT scan Findings concerning for bowel obstruction in the distal to mid ileum. Symptoms are currently mild. However repeat abdominal x-ray this morning showing persistent dilated small bowel concerning for persistent obstruction. Keep NPO, gentle IV fluid Pain control Stool softeners and laxatives. Monitor clinically. His symptoms are mild currently, if worsening, will consult general surgery. (2) ESRD (end stage renal disease) on dialysis ICD Code: N18.6 Status: Acute Plan: Nephrology following for HD. Hemodialysis yesterday (3) HTN (hypertension) ICD Code: I10 Status: Acute Plan: Better controlled Continue losartan, nifedipine, clonidine as needed. Nifedipine increased per nephrology. Bandar Boyce MD Feb 10, 2017 14:01
[2017-02-10] MEDS: LATANOPROST 0.005% OPHT SOLN 2.5 ML BTL EACH EYE SCH (20:57)
[2017-02-10] MEDS: DEXT 5%-NACL 0.9% 1000 ML INJ 1,000 ML IV SCH (20:58)
[2017-02-10] MEDS: DOXAZOSIN MESYLATE 4 MG TAB PO SCH (20:58)
[2017-02-10] MEDS: ATORVASTATIN 40 MG TAB PO SCH (20:58)
[2017-02-11] VITALS: BP 151/70; PULSE 66; RESP 20; TEMP 97.2; O2SAT 93
[2017-02-11 06:05] LABS: POTASSIUM 4.3 MEQ/L (3.5-5.1)
[2017-02-11 06:12] LABS: BICARBONATE 27.9 MEQ/L (21.0-32.0)
--- NOTE | 2017-02-11 07:14 | RADRPT ---
EXAM DATE/TIME: 02/11/2017 06:17 [facility] COMPARISON: ABDOMEN KUB ONLY, February 09, 2017, 7:44. ABDOMEN KUB ONLY, February 10, 2017, 11:16. INDICATIONS : Abdominal pain and distention. MEDICAL HISTORY : Hypercholesterolemia. Hypertension. Diabetes. Renal failure-dialysis. GERD. SURGICAL HISTORY : Appendectomy. Total knee replacement, right. ENCOUNTER: Subsequent ACUITY: 4 - 6 days PAIN SCORE: 2/10 LOCATION: all quadrants. FINDINGS: Supine view of the abdomen was performed. The patient has numerous air-filled loops of small bowel me asuring up to 5.2 cm and the left midabdomen. The rest of the abdominal bowel gas pattern is normal. No abnormal masses, calcifications, or organomegaly is seen. The osseous structures are unremarkab le except for arthritic change right hip. CONCLUSION: Continued dilated loops of small bowel in the left midabdomen. Air throughout the colon. Hever Mirza MD on February 11, 2017 at 7:11 Board Certified Radiologist. This report was verified electronically.
[2017-02-11] MEDS: EPOETIN ALFA 10,000 UNITS/ML VIAL IV PRN (07:54)
[2017-02-11 09:00] VITALS: BP 146/69; PULSE 66; RESP 20; TEMP 97.6; O2SAT 97
[2017-02-11] MEDS: PANTOPRAZOLE SOD 20 MG DELAYED RELEASE TAB PO SCH (12:05)
[2017-02-11] MEDS: LOSARTAN 50 MG TAB PO SCH (12:05)
[2017-02-11] MEDS: NIFEdipine 90 MG SUSTAINED RELEASE TAB PO SCH (12:05)
[2017-02-11] MEDS: DOCUSATE SODIUM 50 MG/SENNA 8.6 MG TAB PO SCH (12:05)
[2017-02-11] MEDS: ASPIRIN 81 MG CHEW TAB CHEW SCH (12:05)
[2017-02-11] MEDS ORDERED: DIATRIZOATE MEGLUM/DIATRIZOATE SOD 120 ML BTL (for RAD DIAG) PO ONE (13:30)
[2017-02-11 14:23] VITALS: BP 163/78; PULSE 72; RESP 18; TEMP 97.2; O2SAT 97
[2017-02-11] MEDS ORDERED: NIFE1TAB PO (15:39)
[2017-02-11] MEDS ORDERED: SENN1TAB PO (15:45)
[2017-02-11] MEDS ORDERED: Lactulose Liq PO (15:45)
--- NOTE | 2017-02-11 16:04 | HHI.DCPOC ---
Discharge Care Plan Diagnosis: (1) SBO (small bowel obstruction) (2) HTN (hypertension) (3) ESRD (end stage renal disease) on dialysis Goals to Promote Your Health * To prevent worsening of your condition and complications * To maintain your health at the optimal level Directions to Meet Your Goals Take your medications as prescribed Follow your dietary instruction Follow activity as directed Keep your appointments as scheduled Take your immunizations and boosters as scheduled If your symptoms worsen call your PCP, if no PCP go to Urgent Care Center or Emergency Room Smoking is Dangerous to Your Health. Avoid second hand smoke Call the 24-hour hour crisis hotline for domestic abuse at Bandar Boyce MD Feb 11, 2017 16:04
--- NOTE | 2017-02-11 16:09 | HHI.DS ---
Discharge Summary Admission Date Feb 09, 2017 at 12:14 Discharge Date: Feb 11, 2017 Admitting Diagnosis PSBO (1) SBO (small bowel obstruction) ICD Code: K56.69 (2) ESRD (end stage renal disease) on dialysis ICD Code: N18.6 (3) HTN (hypertension) ICD Code: I10 Procedures None Brief History - From Admission 87-year-old male with a medical history significant for end-stage renal disease on hemodialysis, hypertension, osteoarthritis who presented to the hospital with complaint of abdominal pain. He reports that his abdomen has not felt right for the past 2 days. He took senna laxative yesterday and had a bowel movement but he continued to have intermittent abdominal cramps. He endorsed some nausea but no vomiting. No fevers or chills. Workup in the emergency room revealed partial small bowel obstruction. CBC/BMP: 02/09/17 0533 02/11/17 0512 Significant Findings Laboratory Tests Test 02/09/17 02/11/17 05:33 05:12 Red Blood Count 3.32 MIL/MM3 (4.50-5.90) Hemoglobin 10.6 GM/DL (13.0-17.0) Hematocrit 33.0 % (39.0-51.0) Neutrophils (%) (Auto) 74.6 % (16.0-70.0) Monocytes (%) (Auto) 8.7 % (0.0-8.0) Chloride Level 109 MEQ/L (98-107) Blood Urea Nitrogen 29 MG/DL (7-18) 32 MG/DL (7-18) Creatinine 8.20 MG/DL 9.40 MG/DL (0.60-1.30) (0.60-1.30) Estimat Glomerular Filtration 8 ML/MIN (>89) 6 ML/MIN (>89) Rate Sodium Level 146 MEQ/L (136-145) Imaging Last Impressions Abdomen X-Ray 02/11/17 0600 Signed Impressions: Service Date/Time: Thursday, February 11, 2017 06:17 - CONCLUSION: Continued dilated loops of small bowel in the left midabdomen. Air throughout the colon. Hever Mirza MD Abdomen/Pelvis CT 02/08/17 0840 Signed Impressions: Service Date/Time: Wednesday, February 08, 2017 10:15 - CONCLUSION: 1. Findings of concern for early or partial small bowel obstruction in the distal to mid ileum. No visualized mass is identified. 2. The kidneys are small and atrophic in appearance with no hydronephrosis. 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 3. No free air or fluid. Dayron Dan MD PE at Discharge GENERAL: This is a well-nourished, well-developed patient, in no apparent distress. CARDIOVASCULAR: Normal rate and regular rhythm without murmurs, gallops, or rubs. RESPIRATORY: Good respiratory efforts. Breath sounds equal and clear to auscultation bilaterally. GASTROINTESTINAL: Abdomen soft, mild tenderness to palpation in the periumbilical region. Normal active bowel sounds MUSCULOSKELETAL: Extremities without cyanosis, or edema. NEURO: Alert & Oriented x4 to person, place, time, situation. Moves all ext x4 PSYCH: Appropriate mood and affect. Pt update on day of discharge Patient reports is feeling better today. He reports he had multiple bowel movement during small bowel follow-through study. He is eager to go home Discussed discharge planning at length with the patient and his at bedside. Hospital Course 87-year-old male admitted for small bowel obstruction. Patient also has hypertension, end-stage renal disease on hemodialysis. Evaluation and treatment course detailed below. SBO (small bowel obstruction) CT scan Findings concerning for bowel obstruction in the distal to mid ileum. Patient treated conservatively. Repeat abdominal x-ray this showing persistent dilated small bowel concerning for persistent obstruction. A small bowel follow -through was done and did not show obstructions. The patient had multiple bowel movements. Obstruction resolved. He is discharged home on scheduled stool softeners. He is advised to avoid getting constipated. ESRD: Nephrology followed the patient. He underwent hemodialysis as scheduled. HTN Initially uncontrolled. Nephrology increased nifedipine to 90 mg daily. Continue losartan Pt Condition on Discharge: Good Discharge Disposition: Discharge Home Discharge Time: > 30 minutes Discharge Instructions Follow up Referrals: PCP Follow-up New Medications: Sennosides-Docusate Sodium (Senna Plus 8.6-50 mg) 1 Tab Tab 1 TAB PO BID #60 TAB ([Lactulose Liq]) 30 ML SYRP 30 ML PO DAILY PRN SEVERE CONSITIPATION Days 10 ML Changed Medications: Nifedipine ER 24 HR (Nifedipine ER 24 HR) 90 Mg Tab 90 MG PO DAILY #30 Ref 0 TAB (Changed from: Nifedipine ER 24 HR (Procardia XL) 30 Mg Tab 30 Mg PO DAILY #30 TAB Ref 0) Continued Medications: Aspirin (Aspirin) 81 Mg Chew 81 MG CHEW DAILY Blood Clot Prevention Ref 0 TAB Atorvastatin (Lipitor) 40 Mg Tab 40 MG PO HS Cholesterol Management #30 Ref 0 TAB Cholecalciferol (Vitamin D3) 1,000 Unit Chew 1000 UNITS CHEW DAILY Nutritional Supplement #1 Ref 0 BOTTLE Doxazosin (Cardura) 8 Mg Tab 8 MG PO HS Blood Pressure Management #30 Ref 0 TAB Febuxostat (Uloric) 40 Mg Tab 1 TAB PO DAILY Irbesartan (Avapro) 300 Mg Tab 300 MG PO DAILY Blood Pressure Management #30 Ref 0 TAB Latanoprost Opth Drops (Latanoprost Opth Drops) 0.005% Drops 1 DROP EACH EYE HS Refrigerate until opened. Glaucoma #2.5 Ref 0 ML Mv-Mn/FA/Coq10/Lycopene/Lutein (Theragran-M Premier 50+ Caplet) 1 Each Tablet 1 TAB PO DAILY Nutritional Supplement Elora-3 Fatty Acids (Fish Oil) 500 Mg Cap 1 CAP PO DAILY Nutritional Supplement Omeprazole (Omeprazole) 20 Mg Tab 20 MG PO DAILY Reflux #30 Ref 0 TAB Discontinued Medications: Bumetanide (Bumetanide) 2 Mg Tab 4 MG PO BID Prevent Heart Failure Ref 0 TAB Bandar Boyce MD Feb 11, 2017 16:09
[2017-02-11 16:38] VITALS: BP 158/68; PULSE 68; RESP 20; TEMP 97.3; O2SAT 96
--- NOTE | 2017-02-11 17:58 | RADRPT ---
EXAM DATE/TIME: 02/11/2017 13:16 [facility] COMPARISON: CT ABDOMEN & PELVIS W CONTRAST, February 08, 2017, 10:15. INDICATIONS : Abdominal pain and an abnormal bowel gas pattern.. FLUORO TIME: 4.9 minutes IMAGE COUNT: 23 CONTRAST: MD Ghotra IMAGING TIME(S): 15 min, 30 min, 45 min, 1 hr, 1.5 hrs1hr 45min, 3hr. MEDICAL HISTORY : Hypercholesterolemia. Hypertension. Diabetes. Renal failure-dialysis. Arthritis. GERD. Sleep apnea SURGICAL HISTORY : Appendectomy. Total knee replacement, right. ENCOUNTER: Subsequent ACUITY: 4 - 6 days PAIN SCORE: 0/10 LOCATION: abdomen FINDINGS: A preliminary psychometrist film demonstrates multiple loops of borderline dilated air-containing small bowel in the midabdomen with no evidence of free air. The stomach is grossly unremarkable. Examination of the small bowel dilution of the Gastrografin contrast sulci in suboptimal visualizatio n of the mid and distal small bowel. There are multiple loops of nondilated small bowel with no disti nct focal mass or transition point. The terminal ileum was not well-visualized. Contrast passed into the colon at 3 hours. CONCLUSION: Limited Gastrografin small bowel follow through demonstrating no evidence of complete obstruction with contrast passing into the colon approximately 3 hours. No focal abnormality was zee ntified. Dayron Dan MD on February 11, 2017 at 17:53 Board Certified Radiologist. This report was verified electronically.
--- NOTE | 2017-02-11 18:18 | HHI.NPPN ---
Subjective General Problems: Anemia, Hypertension Renal Failure: Chronic, End Stage Renal Disease Interval History Dialyzed this morning. He has had multiple bowel movements. To be discharged today. (Marlena Ambriz) Objective Data Data 02/10/17 02/11/17 18:59 06:59 Intake Total 545 ml Output Total 0 ml Balance 545 ml Intake Oral 0 ml IV Total 545 ml Output Urine Total 0 ml # Voids 0 # Bowel Movements 1 Vital Signs Date Time Temp Pulse Resp B/P Pulse Ox O2 Delivery O2 Flow Rate FiO2 02/11/17 16:38 97.3 68 20 158/68 96 02/11/17 14:23 97.2 72 18 163/78 97 02/11/17 09:00 97.6 66 20 146/69 97 02/11/17 00:00 97.2 66 20 151/70 93 Manual Cuff/Auscultation 02/10/17 21:15 97 21 02/10/17 20:00 98.0 68 20 157/81 95 (Marlena Ambriz) -: 02/09/17 0533 02/11/17 0512 Imaging Last 72 hours Impressions Abdomen X-Ray 02/11/17 0600 Signed Impressions: Service Date/Time: Saturday, February 11, 2017 06:17 - CONCLUSION: Continued dilated loops of small bowel in the left midabdomen. Air throughout the colon. Hever Mirza MD Small Bowel X-Ray 02/11/17 0000 Signed Impressions: Service Date/Time: Saturday, February 11, 2017 13:16 - CONCLUSION: Limited Gastrografin small bowel follow through demonstrating no evidence of complete obstruction with contrast passing into the colon approximately 3 hours. No focal abnormality was identified. Dayron Dan MD Abdomen X-Ray 02/10/17 0000 Signed Impressions: Service Date/Time: Friday, February 10, 2017 11:16 - CONCLUSION: Persistent dilated small bowel concerning for persistent obstruction. Omid Staley MD Abdomen X-Ray 02/09/17 0000 Signed Impressions: Service Date/Time: Thursday, February 09, 2017 07:44 - CONCLUSION: Abnormally dilated small bowel measuring up to 4.1 cm, slightly increased from yesterday' s examination. Based on the current appearance and yesterday's CT, findings are suspicious for some degree of distal small bowel obstruction. Omid Escobar MD (Marlena Ambriz) Physical Exam General Appearance: Well Developed, Well Nourished, No Acute Distress, Comfortable ( Marlena Ambriz) Eyes Eye Exam: Pupils Equal (Marlena Ambriz) Throat Throat Exam: Oral Mucosa [place] & Moist (Marlena Ambriz) Neck Neck Exam: Neck Supple (Marlena Ambriz) Pulmonary Resp Exam: Clear Bilaterally, Breath Sounds Equal, No Distress (Marlena Ambriz) Cardiology CV Exam: Regular, Normal Sinus Rhythm, Good Perfusion (Marlena mAbriz) Gastrointestinal/Abdomen GI Exam: Soft, Non-Tender, Bowel Sounds Present, Positive Bowel Movement GI Remarks BM 02/08 (Marlena Ambriz) Musculoskeletal MS Exam: Joints Intact, Good Strength (Marlena Ambriz) Integumentary Skin Exam: Clear, Warm, Dry, Intact (Marlena Ambriz) Extremeties Extremities Exam: Pedal Pulses Palpable, Trace Edema Extremeties Remarks right arm AVF, accessed during HD (Marlena Ambriz) Neurologic Neuro Exam: Alert, Awake, Oriented, Speech Clear, Moving All Extremities ( Marlena Ambriz) Psychiatric Psych Exam: Appropriate Responses (Marlena Ambriz) Assessment/Plan Discussed Condition With: Patient Assessment Summary: Anemia of CKD, Hypertension, End Stage Renal Disease Problem List: (1) ESRD (end stage renal disease) on dialysis Plan: 1 liter fluid removal today with dialysis he can resume MWF HD schedule when discharged stable from renal perspective, no electrolyte abnormalities phosphorus is acceptable (2) SBO (small bowel obstruction) Plan: non surgical management he has had multiple BMs repeat imaging shows resolution of obstruction (3) HTN (hypertension) Plan: continue home medications Plan cleared for discharge from renal perspective (Marlena Ambriz) Plan patient was seen and examined. Agree with above assessment and plan. (Daniel Maki MD) Marlena Ambriz Feb 11, 2017 18:18 Daniel Maki MD Feb 11, 2017 18:34
== END 2017-02-11 18:54 | disposition home or self-care (01) | DRG 388 ==
LOC: PHED 07:55 → PHEDA 11:56 → PH3B 12:30 → OBSVTOIN 02-09 12:14
PROVIDERS: ADMIT Family Medicine; ATTEND Family Medicine
PROC: 5A1D60Z (ICD-10-PCS; principal; 2017-02-09)
DX: K56.60 Unspecified intestinal obstruction (principal); N18.6 End stage renal disease; I12.0 Hypertensive chronic kidney disease with stage 5 chronic kidney disease or end stage renal disease; E11.22 Type 2 diabetes mellitus with diabetic chronic kidney disease; Z99.2 Dependence on renal dialysis; M19.90 Unspecified osteoarthritis, unspecified site; K21.9 Gastro-esophageal reflux disease without esophagitis; I25.9 Chronic ischemic heart disease, unspecified; E78.5 Hyperlipidemia, unspecified; G47.30 Sleep apnea, unspecified; Z96.651 Presence of right artificial knee joint
CPT/HCPCS: 74000; 74177; 74250; 80048; 80053; 83605; 83690; 84100; 85025; 90935; 96365; 96366; 96374; G0378; J3480; J7030; J7042; Q4081; Q9963; Q9967

== ENCOUNTER 2017-02-13 05:25 | Inpatient (IN) | payer MEDICARE, BC, OTHER ==
[~2017-02-13] VITALS: Ht 182.9 cm; Wt 100.8 kg
[2017-02-13 05:25] VITALS: BP 147/64; PULSE 72; RESP 16; TEMP 98.2; O2SAT 93
[~2017-02-13 05:25] MED LIST changes: +ASPI81CH CHEW; -ASPI81CH5 PO; -BUME2TAB PO; -BYST10TA2 PO; +CARD8TAB2 PO; -CARD8TAB6 PO; +CHOL100025 CHEW; -FISH1000 PO; +FISH500C PO; -FLUO.05%ST TOP; -IRBE1TAB39 PO; +IRBE300T44 PO; +LATA0.002 EACH EYE; +Lactulose Liq PO; -MAGN1SOL2 PO; -MIRA33502 PO; -MULTCAP14 PO; +NIFE1TAB PO; +OMEP20TA PO; -POLY119S PO; -PRIL20CA PO; -PROC60TA PO; -SENN-29 PO; +SENN1TAB PO; +THER50TA3 PO; -ULTR50TA PO; -VITD400 PO; -XALA0.00 EACH EYE
[2017-02-13] MEDS ORDERED: ONDANSETRON HCL 4 MG/2 ML VIAL IVP ONE (05:45)
[2017-02-13] MEDS ORDERED: SODIUM CHLORIDE 0.9% FLUSH 10 ML FLUSH IV FLUSH PRN ×3 (05:45→10:00)
--- NOTE | 2017-02-13 05:47 | PD ---
HPI . 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 The patient was recently hospitalized for small bowel obstruction possibly due to constipation and was discharged 2 days ago with apparent resolution of symptoms and multiple bowel movements. Patient reports he had one episode of loose watery stools last night. Since then he has not been passing any gas. He does not report any pain or vomiting, however he gets nauseous when he lies flat. He reports increased abdominal distention. At discharge he was given a prescription for Senna and took 1 tablet. He denies any shortness of breath, chest pain, difficulty urinating, or hematochezia. He does not currently consume alcohol or smoke tobacco. He has a history of open perforated appendectomy. PFSH Past Medical History Arthritis: Yes Asthma: No Autoimmune Disease: No Heart Rhythm Problems: No Cancer: No Cardiovascular Problems: Yes High Cholesterol: Yes Chest Pain: No Congestive Heart Failure: No COPD: No Diabetes: Yes Dialysis: Yes Diminished Hearing: No Endocrine: No Gastrointestinal Disorders: Yes (REFLUX) GERD: Yes Genitourinary: No Hepatitis: No Hiatal Hernia: No Hypertension: Yes Immune Disorder: No Kidney Stones: No Musculoskeletal: Yes (ARTHRITIS) Neurologic: No Psychiatric: No Reproductive: No Respiratory: Yes (SLEEP APNEA) Renal Failure: Yes Sleep Apnea: Yes Thyroid Disease: No Ulcer: No Past Surgical History Abdominal Surgery: Yes (APPEND., ) AICD: No Appendectomy: Yes (1980) Arteriovenous Shunt: No Cardiac Surgery: No Ear Surgery: No Endocrine Surgery: No Eye Surgery: Yes (CATARACT BILAT.) Gynecologic Surgery: No Insulin Pump: No Joint Replacement: Yes (RIGHT KNEE) Oral Surgery: No Pacemaker: No Thoracic Surgery: No Social History Alcohol Use: Yes (ONCE A MONTH) Tobacco Use: No Substance Use: No Allergies-Medications (Allergen,Severity, Reaction): Coded Allergies: acetaminophen (Unverified Allergy, Intermediate, ITCHING, 02/13/17) ibuprofen (Unverified Allergy, Intermediate, swelling, itching, 02/13/17) morphine (Unverified Allergy, Intermediate, itch, 02/13/17) propoxyphene (Unverified Allergy, Intermediate, ITCHING, 02/13/17) Reported Meds & Prescriptions Reported Meds & Active Scripts Active Senna Plus 8.6-50 mg (Sennosides-Docusate Sodium) 1 Tab Tab 1 Tab PO BID [Lactulose Liq] 30 ML Syrp 30 Ml PO DAILY PRN 10 Days Reported Nifedipine 10 Mg Cap 30 Mg PO DAILY Vitamin D3 (Cholecalciferol) 1,000 Unit Chew 1,000 Units CHEW DAILY Theragran-M Premier 50+ Caplet (Mv-Mn/FA/Coq10/Lycopene/Lutein) 1 Each Tablet 1 Tab PO DAILY Fish Oil ([place]-3 Fatty Acids) 500 Mg Cap 1 Cap PO DAILY Latanoprost Opth Drops (Latanoprost) 0.005% Drops 1 Drop EACH EYE HS Refrigerate until opened. Aspirin 81 Mg Chew 81 Mg CHEW DAILY Uloric (Febuxostat) 40 Mg Tab 1 Tab PO DAILY Lipitor (Atorvastatin Calcium) 40 Mg Tab 40 Mg PO HS Cardura (Doxazosin Mesylate) 8 Mg Tab 8 Mg PO HS Avapro (Irbesartan) 300 Mg Tab 300 Mg PO DAILY Review of Systems Except as stated in HPI: all other systems reviewed are Neg General / Constitutional: No: Fever, Chills Gastrointestinal: Positive: Nausea, Abdominal Pain, No: Vomiting, Diarrhea, Constipation Physical Exam Narrative GENERAL: Awake and alert and in no acute distress. SKIN: Warm and dry. HEAD: Atraumatic. Normocephalic. EYES: Pupils equal and round. ENT: No nasal bleeding or discharge. Mucous membranes pink and moist. NECK: Trachea midline. CARDIOVASCULAR: Regular rate and rhythm. RESPIRATORY: No accessory muscle use. GASTROINTESTINAL: Abdomen soft, non-tender. Positive distention. Bowel sounds are normal. MUSCULOSKELETAL: No obvious deformities. No edema. NEUROLOGICAL: Awake and alert. No obvious cranial nerve deficits. Motor grossly within normal limits. Normal speech. PSYCHIATRIC: Appropriate mood and affect; insight and judgment normal. Data Data Last Documented VS Vital Signs Date Time Temp Pulse Resp B/P Pulse Ox O2 Delivery O2 Flow Rate FiO2 02/13/17 05:25 98.2 72 16 147/64 93 Orders Basic Metabolic Panel (Bmp) (02/13/17 05:36) Complete Blood Count With Diff (02/13/17 05:36) Lactic Acid (02/13/17 05:36) Ct Abd/Pel W/O Iv Contrast (02/13/17 05:36) Iv Access Insert/Monitor (02/13/17 05:36) Ondansetron Inj (Zofran Inj) (02/13/17 05:45) Sodium Chloride 0.9% Flush (Ns Flush) (02/13/17 05:45) Oral Contrast - Adult (02/13/17 ) Diatrizoate Liq (Md Ghotra Liq) (02/13/17 05:49) Diatrizoate Liq (Md Ghotra Liq) (02/13/17 05:55) Labs Laboratory Tests Test 02/13/17 05:40 White Blood Count 8.9 TH/MM3 Red Blood Count 3.44 MIL/MM3 Hemoglobin 11.6 GM/DL Hematocrit 33.7 % Mean Corpuscular Volume 98.1 FL Mean Corpuscular Hemoglobin 33.7 PG Mean Corpuscular Hemoglobin 34.4 % Concent Red Cell Distribution Width 12.3 % Platelet Count 243 TH/MM3 Mean Platelet Volume 9.8 FL Neutrophils (%) (Auto) 80.7 % Lymphocytes (%) (Auto) 9.8 % Monocytes (%) (Auto) 8.7 % Eosinophils (%) (Auto) 0.0 % Basophils (%) (Auto) 0.8 % Neutrophils # (Auto) 7.1 TH/MM3 Lymphocytes # (Auto) 0.9 TH/MM3 Monocytes # (Auto) 0.8 TH/MM3 Eosinophils # (Auto) 0.0 TH/MM3 Basophils # (Auto) 0.1 TH/MM3 CBC Comment DIFF FINAL Differential Comment Sodium Level 138 MEQ/L Potassium Level 3.8 MEQ/L Chloride Level 98 MEQ/L Carbon Dioxide Level 30.0 MEQ/L Anion Gap 10 MEQ/L Blood Urea Nitrogen 32 MG/DL Creatinine 11.00 MG/DL Estimat Glomerular Filtration 5 ML/MIN Rate Random Glucose 116 MG/DL Lactic Acid Level 1.1 mmol/L Calcium Level 10.0 MG/DL [facility] Medical Decision Making Medical Screen Exam Complete: Yes Emergency Medical Condition: Yes Differential Diagnosis Constipation, SBO, Ascites Narrative Course This is an 87 year old male who presents with nausea and increased abdominal distention. He was recently discharged from [facility] with a diagnosis of small bowel obstruction which apparently resolved. He reports increasing symptoms of discomfort since his discharge and was compliant with laxative medication. CT abdomen was ordered. Zofran was given for nausea. Care is being turned over to the oncoming physician pending his CT. CBC & BMP Diagram 02/13/17 05:40 Lactic acid level is normal. Diagnosis Primary Impression: Abdominal distention Condition: Stable Laureen Mccarthy MD Feb 13, 2017 05:46
[2017-02-13] MEDS ORDERED: DIATRIZOATE MEGLUM/DIATRIZOATE SOD 9 ML CUP ONE ×2 (05:49→05:55)
[2017-02-13 05:55] LABS: AUTOMATED NEUTROPHIL # 7.1 TH/MM3 (1.8-7.7); BASOPHIL # 0.1 TH/MM3 (0-0.2); BASOPHIL % 0.8 % (0.0-2.0); HEMATOCRIT 33.7 % (39.0-51.0); LYMPH % 9.8 % (9.0-44.0); LYMPHOCYTE # 0.9 TH/MM3 (1.0-4.8); MEAN CELL VOLUME 98.1 FL (80.0-100.0); MEAN CORPUSCULAR HEMOGLOBIN 33.7 PG (27.0-34.0); MEAN CORPUSCULAR HGB CONC 34.4 % (32.0-36.0); MONO % 8.7 % (0.0-8.0); NEUT % 80.7 % (16.0-70.0); PLATELET COUNT 243 TH/MM3 (150-450); RED BLOOD COUNT 3.44 MIL/MM3 (4.50-5.90); RED CELL DISTRIBUTION WIDTH 12.3 % (11.6-17.2); WHITE BLOOD COUNT 8.9 TH/MM3 (4.0-11.0)
[2017-02-13 05:56] LABS: HEMO FLAGS DIFF FINAL
[2017-02-13] MEDS ORDERED: NIFE10CA PO (06:04)
[2017-02-13 06:11] LABS: POTASSIUM 3.8 MEQ/L (3.5-5.1)
[2017-02-13 07:30] VITALS: BP 153/65; PULSE 61; RESP 16; O2SAT 94
--- NOTE | 2017-02-13 07:36 | RADRPT ---
EXAM DATE/TIME: 02/13/2017 07:10 [facility] COMPARISON: CT ABDOMEN & PELVIS W CONTRAST, February 08, 2017, 10:15. INDICATIONS : Recent diagnosis of small bowel obstruction. Nausea, constipation for 6 days. ORAL CONTRAST: Partial prescribed oral contrast ingested. RADIATION DOSE: 21.90 CTDIvol (mGy) MEDICAL HISTORY : Diabetes mellitus type 2. Gastroesophageal reflux disease. Renal disease, end stage.gout, Hypertensio n SURGICAL HISTORY : Appendectomy. ENCOUNTER: Initial ACUITY: 4 - 6 days PAIN SCALE: 0/10 LOCATION: abdomen TECHNIQUE: Volumetric scanning of the abdomen and pelvis was performed. Using automated exposure control and ad justment of the mA and/or kV according to patient size, radiation dose was kept as low as reasonably achievable to obtain optimal diagnostic quality images. DICOM format image data is available electro nically for review and comparison. FINDINGS: LOWER LUNGS: There is mild atelectasis at the left base. There is elevation of the left hemidiaphragm. LIVER: Homogeneous density without lesion. There is no dilation of the biliary tree. No calcified gallston es. SPLEEN: Normal size without lesion. PANCREAS: Within normal limits. KIDNEYS: The kidneys appear small. There is a partially duplicated system on the left side which is a normal v ariant. There is a 4 mm suspected nonobstructing stone seen at the inferior left renal collecting sys tem. There is also a questionable tiny calcifications at the inferior right collecting system. No hyd ronephrosis is seen. ADRENAL GLANDS: There is mild diffuse thickening of the adrenal glands without definite focal mass. VASCULAR: There is no aortic aneurysm. Atherosclerotic calcifications are seen throughout the arterial system. BOWEL/MESENTERY: The proximal and mid small bowel is distended measuring over 3 cm in diameter. The distal small bowel is decompressed. An actual transition point is not clearly seen but some degree of partial obstructi on needs to be considered. Oral contrast is seen within a nondistended colon. ABDOMINAL WALL: There is a small umbilical hernia containing mesenteric fat. RETROPERITONEUM: There is no lymphadenopathy. BLADDER: No wall thickening or mass. REPRODUCTIVE: The prostate is enlarged. INGUINAL: There is no lymphadenopathy or hernia. MUSCULOSKELETAL: There is degenerative change in the lower lumbar spine and at the right hip. CONCLUSION: 1. Dilatation of the proximal and mid small bowel with decompression of the distal small bowel. Oral contrast is seen within the colon. Some degree of partial obstruction needs to be suspected at the re gion between the mid and distal small bowel. 2. Atelectasis at the left base. There is elevation left hemidiaphragm. 3. The kidneys appear somewhat small. There are possible nodular stone seen bilaterally. 4. Degenerative changes in the lower lumbar spine and at the right hip. Omid Staley MD on February 13, 2017 at 7:25 Board Certified Radiologist. This report was verified electronically.
--- NOTE | 2017-02-13 09:02 | PD ---
Data Data Last Documented VS Vital Signs Date Time Temp Pulse Resp B/P Pulse Ox O2 Delivery O2 Flow Rate FiO2 02/13/17 07:30 61 16 153/65 94 02/13/17 05:25 98.2 Orders Basic Metabolic Panel (Bmp) (02/13/17 05:36) Complete Blood Count With Diff (02/13/17 05:36) Lactic Acid (02/13/17 05:36) Ct Abd/Pel W/O Iv Contrast (02/13/17 05:36) Iv Access Insert/Monitor (02/13/17 05:36) Ondansetron Inj (Zofran Inj) (02/13/17 05:45) Sodium Chloride 0.9% Flush (Ns Flush) (02/13/17 05:45) Oral Contrast - Adult (02/13/17 ) Diatrizoate Liq ( Gastroview Liq) (02/13/17 05:49) Diatrizoate Liq ( Gastrofrandy Liq) (02/13/17 05:55) Admit Order (Ed Use Only) (02/13/17 08:41) Labs Laboratory Tests Test 02/13/17 05:40 White Blood Count 8.9 TH/MM3 Red Blood Count 3.44 MIL/MM3 Hemoglobin 11.6 GM/DL Hematocrit 33.7 % Mean Corpuscular Volume 98.1 FL Mean Corpuscular Hemoglobin 33.7 PG Mean Corpuscular Hemoglobin 34.4 % Concent Red Cell Distribution Width 12.3 % Platelet Count 243 TH/MM3 Mean Platelet Volume 9.8 FL Neutrophils (%) (Auto) 80.7 % Lymphocytes (%) (Auto) 9.8 % Monocytes (%) (Auto) 8.7 % Eosinophils (%) (Auto) 0.0 % Basophils (%) (Auto) 0.8 % Neutrophils # (Auto) 7.1 TH/MM3 Lymphocytes # (Auto) 0.9 TH/MM3 Monocytes # (Auto) 0.8 TH/MM3 Eosinophils # (Auto) 0.0 TH/MM3 Basophils # (Auto) 0.1 TH/MM3 CBC Comment DIFF FINAL Differential Comment Sodium Level 138 MEQ/L Potassium Level 3.8 MEQ/L Chloride Level 98 MEQ/L Carbon Dioxide Level 30.0 MEQ/L Anion Gap 10 MEQ/L Blood Urea Nitrogen 32 MG/DL Creatinine 11.00 MG/DL Estimat Glomerular Filtration 5 ML/MIN Rate Random Glucose 116 MG/DL Lactic Acid Level 1.1 mmol/L Calcium Level 10.0 MG/DL [facility] Medical Record Reviewed: Yes Supervised Visit with SARATH: No Narrative Course This case is checked out to me by Dr. Mccarthy at 7 AM. I have reviewed his electronic medical history and review the entirety of today' s workup. He was recently admitted for partial small bowel obstruction and discharged 2 days ago. Unfortunately he came back today with the exact same problem. He has abdominal bloating and distention and persistent nausea. His CBC shows no leukocytosis Creatinine is 11 as expected for dialysis patient but electrolytes are normal CT scan reveals similar findings of partial small bowel obstruction. Oral contrast goes through the colon so the obstruction is not complete. His abdomen is distended but there is no abdominal tenderness. It is not acute abdomen. Patient had laparotomy 30 years ago for ruptured appendicitis. Possibly he has some adhesions. Etiology of his partial small bowel obstruction is not clear at this time. I reviewed with Dr. Cardoza who recommends hospitalization here at [facility]. Diagnosis Primary Impression: Partial small bowel obstruction Admitting Information Admitting Physician Requests: Admit Condition: Stable Dioni Huang MD Feb 13, 2017 09:02
[2017-02-13] MEDS ORDERED: NALOXONE HCL 0.4 MG/ML AMP IV PRN (09:30)
[2017-02-13] MEDS ORDERED: ACETAMINOPHEN 325 MG TAB PO PRN ×2 (09:30→10:00)
[2017-02-13] MEDS ORDERED: ONDANSETRON HCL 4 MG/2 ML VIAL IVP PRN (09:30)
[2017-02-13] MEDS: DEXT 5%-NACL 0.45% 1000 ML INJ 1,000 ML IV SCH (09:45)
[2017-02-13] MEDS ORDERED: SODIUM CHLOR 0.9% 1000 ML INJ 1,000 ML IV PRN ×3 (09:51)
[2017-02-13] MEDS ORDERED: MANNITOL 12.5 GM/50 ML VIAL IV PRN (10:00)
[2017-02-13] MEDS ORDERED: GELATIN 12 MM/7 MM FOAM TOP PRN (10:00)
[2017-02-13] MEDS ORDERED: cloNIDine HCL 0.1 MG TAB PO PRN (10:00)
[2017-02-13] MEDS ORDERED: HEPARIN SODIUM - IV 10,000 UNITS/10 ML VIAL PRN (10:00)
[2017-02-13] MEDS ORDERED: diphenhydrAMINE HCL 25 MG CAP PO PRN (10:00)
[2017-02-13] MEDS ORDERED: ALBUMIN HUMAN 25% 25 GM/100 ML BAGP IV PRN (10:00)
[2017-02-13] MEDS ORDERED: NITROGLYCERIN 0.4 MG SL 25 TABS/BTL SL PRN (10:00)
[2017-02-13] MEDS ORDERED: HEPARIN SODIUM - IV 10,000 UNITS/10 ML VIAL IVF PRN (10:00)
[2017-02-13] MEDS ORDERED: GENTAMICIN SULFATE (DIALYSIS USE ONLY) 20 MG/2 ML VIAL IV PRN (10:00)
[2017-02-13] MEDS ORDERED: ONDANSETRON HCL 4 MG/2 ML VIAL IV PRN (10:00)
[2017-02-13] MEDS: LOSARTAN 50 MG TAB PO SCH (10:30)
[2017-02-13] MEDS: NIFEdipine 90 MG SUSTAINED RELEASE TAB PO SCH (10:47)
[2017-02-13 11:00] VITALS: O2SAT 93
[2017-02-13 11:50] VITALS: BP 164/68; PULSE 63; RESP 20; TEMP 96.4; O2SAT 96
--- NOTE | 2017-02-13 12:32 | HHI.HP ---
[facility] Derek Juarez MD Admission Diagnosis partial SBO Diagnoses: Chief Complaint: Abdominal pain Travel History International Travel<30 Days: No Contact w/Intl Traveler <30 Da: No Traveled to Known Affected Are: No History of Present Illness 87-year-old male with a medical history significant for hypertension, end-stage renal disease on dialysis. The patient was discharged 2 days ago after he was admitted for partial bowel obstruction. He was treated conservatively. A small bowel series was done which did not show an obstruction. He had multiple bowel movements. The patient returned with complaint of worsening abdominal pain and nausea. Repeat CT in the emergency room is again concerning for partial bowel obstruction. Review of Systems Constitutional: DENIES: Fever, Chills Respiratory: DENIES: Shortness of breath Gastrointestinal: COMPLAINS OF: Abdominal pain, Nausea, DENIES: Diarrhea, Vomiting Except as stated in HPI: all other systems reviewed are Neg Past Family Social History Past Medical History End stage renal disease on hemodialysis hypertension osteoarthritis Past Surgical History Appendectomy in the 80s Right knee arthroplasty Reported Medications Reported Meds & Active Scripts Active Senna Plus 8.6-50 mg (Sennosides-Docusate Sodium) 1 Tab Tab 1 Tab PO BID [Lactulose Liq] 30 ML Syrp 30 Ml PO DAILY PRN 10 Days Reported Nifedipine 10 Mg Cap 30 Mg PO DAILY Vitamin D3 (Cholecalciferol) 1,000 Unit Chew 1,000 Units CHEW DAILY Theragran-M Premier 50+ Caplet (Mv-Mn/FA/Coq10/Lycopene/Lutein) 1 Each Tablet 1 Tab PO DAILY Fish Oil ([place]-3 Fatty Acids) 500 Mg Cap 1 Cap PO DAILY Latanoprost Opth Drops (Latanoprost) 0.005% Drops 1 Drop EACH EYE HS Refrigerate until opened. Aspirin 81 Mg Chew 81 Mg CHEW DAILY Uloric (Febuxostat) 40 Mg Tab 1 Tab PO DAILY Lipitor (Atorvastatin Calcium) 40 Mg Tab 40 Mg PO HS Cardura (Doxazosin Mesylate) 8 Mg Tab 8 Mg PO HS Avapro (Irbesartan) 300 Mg Tab 300 Mg PO DAILY Allergies: Coded Allergies: acetaminophen (Unverified Allergy, Intermediate, ITCHING, 02/13/17) ibuprofen (Unverified Allergy, Intermediate, swelling, itching, 02/13/17) morphine (Unverified Allergy, Intermediate, itch, 02/13/17) propoxyphene (Unverified Allergy, Intermediate, ITCHING, 02/13/17) Family History Father of heart disease. 2 brothers of complications from diabetes. Social History No tobacco, alcohol, or illicit drugs. Physical Exam Vital Signs Vital Signs Date Time Temp Pulse Resp B/P Pulse Ox O2 Delivery O2 Flow Rate FiO2 02/13/17 11:50 96.4 63 20 164/68 96 02/13/17 07:30 61 16 153/65 94 02/13/17 05:25 98.2 72 16 147/64 93 Physical Exam GENERAL: This is a well-nourished, well-developed patient, in no apparent distress. SKIN: No rashes, ecchymoses or lesions. Cool and dry. HEAD: Atraumatic. Normocephalic. No temporal or scalp tenderness. EYES: Pupils equal round and reactive. Extraocular motions intact. No scleral icterus. No injection or drainage. ENT: Nose without bleeding, purulent drainage or septal hematoma. Throat without erythema, tonsillar hypertrophy or exudate. Uvula midline. Airway patent. NECK: Trachea midline. No JVD or lymphadenopathy. Supple, nontender, no meningeal signs. CARDIOVASCULAR: Regular rate and rhythm without murmurs, gallops, or rubs. RESPIRATORY: Clear to auscultation. Breath sounds equal bilaterally. No wheezes , rales, or rhonchi. GASTROINTESTINAL: Abdomen much more distended compared to my previous exam. Mild tenderness to palpation diffusely. Hypoactive bowel sounds. No guarding MUSCULOSKELETAL: Extremities without clubbing, cyanosis, or edema. No joint tenderness, effusion, or edema noted. No calf tenderness. Negative Homans sign bilaterally. NEUROLOGICAL: Awake and alert. Cranial nerves II through XII intact. Motor and sensory grossly within normal limits. Five out of 5 muscle strength in all muscle groups. Normal speech. Laboratory Laboratory Tests Test 02/13/17 05:40 White Blood Count 8.9 Red Blood Count 3.44 Hemoglobin 11.6 Hematocrit 33.7 Mean Corpuscular Volume 98.1 Mean Corpuscular Hemoglobin 33.7 Mean Corpuscular Hemoglobin 34.4 Concent Red Cell Distribution Width 12.3 Platelet Count 243 Mean Platelet Volume 9.8 Neutrophils (%) (Auto) 80.7 Lymphocytes (%) (Auto) 9.8 Monocytes (%) (Auto) 8.7 Eosinophils (%) (Auto) 0.0 Basophils (%) (Auto) 0.8 Neutrophils # (Auto) 7.1 Lymphocytes # (Auto) 0.9 Monocytes # (Auto) 0.8 Eosinophils # (Auto) 0.0 Basophils # (Auto) 0.1 CBC Comment DIFF FINAL Differential Comment Sodium Level 138 Potassium Level 3.8 Chloride Level 98 Carbon Dioxide Level 30.0 Anion Gap 10 Blood Urea Nitrogen 32 Creatinine 11.00 Estimat Glomerular Filtration 5 Rate Random Glucose 116 Lactic Acid Level 1.1 Calcium Level 10.0 Result Diagram: 02/13/17 0540 02/13/17 0540 Imaging Last Impressions Abdomen/Pelvis CT 02/13/17 0536 Signed Impressions: Service Date/Time: Monday, February 13, 2017 07:10 - CONCLUSION: 1. Dilatation of the proximal and mid small bowel with decompression of the distal small bowel. Oral contrast is seen within the colon. Some degree of partial obstruction needs to be suspected at the region between the mid and distal small bowel. 2. Atelectasis at the left base. There is elevation left hemidiaphragm. 3. The kidneys appear somewhat small. There are possible nodular stone seen bilaterally. 4. Degenerative changes in the lower lumbar spine and at the right hip. Omid Staley MD Assessment and Plan Problem List: (1) Partial small bowel obstruction ICD Code: K56.69 Status: Acute (2) HTN (hypertension) ICD Code: I10 Status: Acute (3) ESRD (end stage renal disease) on dialysis ICD Code: N18.6 Status: Acute Assessment and Plan 87-year-old male admitted for persistent partial small bowel obstruction. This is the patient's second admission. Patient also has hypertension, end-stage renal disease on hemodialysis. Persistent partial SBO (small bowel obstruction): Patient was recently admitted for the same and was discharged 2 days ago. He was treated conservatively. A small bowel study did not reveal a complete obstruction. He had multiple bowel movements. He came back with the same symptoms. Repeat CT concerning for partial obstruction. Abdomen is much more distended today compared to previous exam - Consult general surgery for assistance. keep NPO. If vomiting, would put NGT - Gentle IVF. Pain control. Antiemetics as needed. ESRD on hemodialysis: Consult nephrology for dialysis. HTN Continue nifedipine 90 mg daily and losartan. Discussed Condition With Judy Hays, General Surgery [employer]. patient and his . Physician Certification 2 Midnight Certification Type: Admission for Inpatient Services Order for Inpatient Services The services are ordered in accordance with Medicare regulations or non- Medicare payer requirements, as applicable. In the case of services not specified as inpatient-only, they are appropriately provided as inpatient services in accordance with the 2-midnight benchmark. Estimated LOS (days): 3 days is the estimated time the patient will need to remain in the hospital, assuming treatment plan goals are met and no additional complications. Post-Hospital Plan: Bandar Dubon MD Feb 13, 2017 12:31
[2017-02-13] MEDS ORDERED: DIATRIZOATE MEGLUM/DIATRIZOATE SOD 120 ML BTL (for RAD DIAG) PO ONE (13:50)
--- NOTE | 2017-02-13 16:15 | RADRPT ---
EXAM DATE/TIME: 02/13/2017 13:28 [facility] COMPARISON: CT ABDOMEN & PELVIS W/O CONTRAST, February 13, 2017, 7:10. SMALL BOWEL SERIES W/GASTROGRAFIN, January 272016, 13:16. INDICATIONS : Abdominal pain. Evaluate obstruction. FLUORO TIME: 0 minutes IMAGE COUNT: 0 CONTRAST: Gastrofrandy IMAGING TIME(S): 15 min, 30 min, 45 min, 1 hr, 2 hr MEDICAL HISTORY : Hypertension. Hypercholesterolemia. Diabetes, renal failure SURGICAL HISTORY : Appendectomy. ENCOUNTER: [facility] ACUITY: 2 days PAIN SCORE: 6/10 LOCATION: Abdomen FINDINGS: The stomach is grossly unremarkable. Dilated air-filled loops of small bowel are seen throughout the abdomen. Contrast is seen throughout the colon related to the prior small bowel series performed 2 da ys ago. The dilated loops of bowel are unchanged. The examination was terminated at 2 hours as the patient required dialysis. At 2 hours there remains dilated gas-filled loops of unopacified distal small bowel. The opacified loops of proximal small bow el are dilated without filling defect. No focal transition point is seen. CONCLUSION: 1. Oral contrast within the colon from the small bowel series performed 2 days ago. This suggests iker e patency throughout the small bowel and therefore the pattern either relates to a partial small charlene l obstruction or to an ileus. 2. Multiple dilated loops of small bowel throughout the abdomen without a focal transition point. 3. The examination was abbreviated due to the patient requiring dialysis. A KUB will be performed aft er dialysis to see if any of the more distal small bowel is opacified at that time. Tommie Rick Jr., MD on February 13, 2017 at 16:07 Board Certified Radiologist. This report was verified electronically.
--- NOTE | 2017-02-13 17:43 | PD.CONS ---
[facility] Service Nephrology Consult Requested By Reason for Consult ESRD on HD Primary Care Physician Derek Juarez MD History of Present Illness This is out 87 y/o AAM dialysis patient who was readmitted for evaluation of SBO. He was discharged on Thursday for similar complaints. He had recurrent nausea therefore came back in. He has been passing liquid BMs. PMH of anemia, HTN, metabolic bone disorder. He is stable and currently receiving hemodialysis. His imaging is negative so far, but his small bowel imaging had to be terminated to complete HD on his usual treatment day. He has not missed any dialysis. He is not in pain and is a full code. (Marlena Ambriz) Review of Systems Constitutional: COMPLAINS OF: Change in appetite, DENIES: Fatigue, Fever Cardiovascular: DENIES: Chest pain Gastrointestinal: COMPLAINS OF: Diarrhea, Nausea, DENIES: Abdominal pain, Constipation, Vomiting (Marlena Ambriz) Past Family Social History Allergies: Coded Allergies: acetaminophen (Unverified Allergy, Intermediate, ITCHING, 02/13/17) ibuprofen (Unverified Allergy, Intermediate, swelling, itching, 02/13/17) morphine (Unverified Allergy, Intermediate, itch, 02/13/17) propoxyphene (Unverified Allergy, Intermediate, ITCHING, 02/13/17) Past Medical History End stage renal disease on hemodialysis MWF anemia metabolic bone disease secondary hyperparathyroidism hypertension osteoarthritis Past Surgical History open Appendectomy in the Right knee arthroplasty Reported Medications Senna Plus 8.6-50 mg (Sennosides-Docusate Sodium) 1 Tab Tab 1 Tab PO BID [Lactulose Liq] 30 ML Syrp 30 Ml PO DAILY PRN 10 Days Reported Nifedipine 10 Mg Cap 30 Mg PO DAILY Vitamin D3 (Cholecalciferol) 1,000 Unit Chew 1,000 Units CHEW DAILY Theragran-M Premier 50+ Caplet (Mv-Mn/FA/Coq10/Lycopene/Lutein) 1 Each Tablet 1 Tab PO DAILY Fish Oil (Browder-3 Fatty Acids) 500 Mg Cap 1 Cap PO DAILY Latanoprost Opth Drops (Latanoprost) 0.005% Drops 1 Drop EACH EYE HS Refrigerate until opened. Aspirin 81 Mg Chew 81 Mg CHEW DAILY Uloric (Febuxostat) 40 Mg Tab 1 Tab PO DAILY Lipitor (Atorvastatin Calcium) 40 Mg Tab 40 Mg PO HS Cardura (Doxazosin Mesylate) 8 Mg Tab 8 Mg PO HS Avapro (Irbesartan) 300 Mg Tab 300 Mg PO DAILY Active Ordered Medications Current Medications Medications (Trade) Dose Ordered Sig/Ba Route Start Time Stop Time Status Last Admin (Procardia Xl) 90 mg DAILY PO 02/13/17 09:22 02/13/17 10:47 (Aspirin Chew) 81 mg DAILY CHEW 02/14/17 09:00 (Lipitor) 40 mg HS PO 02/13/17 21:00 (Cardura) 8 mg HS PO 02/13/17 21:00 (Xalatan 0.005% Opth Soln) 1 drop HS EACH EYE 02/13/17 21:00 Patient Own Medication PT OWN MED: (Febuxos... DAILY PO 02/14/17 09:00 Future Hold (Cozaar) 100 mg DAILY PO 02/13/17 10:30 (NS Flush) 2 ml UNSCH PRN IV FLUSH 02/13/17 09:30 (NS Flush) 2 ml BID IV FLUSH 02/13/17 21:00 (Tylenol) 650 mg Q4H PRN PO 02/13/17 09:30 (Zofran Inj) 4 mg Q6H PRN IVP 02/13/17 09:30 Naloxone HCl 0.4 mg 0.4 mg UNSCH PRN IV 02/13/17 09:30 Dextrose/Sodium Chloride 1,000 ml @ 60 mls/hr [id number] IV 02/13/17 09:45 (NS 1000 ml Inj) 1,000 ml @ 0 mls/hr Q0M PRN IV 02/13/17 09:51 Heparin Sodium (Porcine) 8000 units 8,000 units UNSCH PRN IVF 02/13/17 10:00 Sodium Chloride 1,000 ml @ 200 mls/hr Q5H PRN IV 02/13/17 09:51 (NS 1000 ml Inj) 1,000 ml @ 0 mls/hr Q0M PRN IV 02/13/17 09:51 (Mannitol Inj) 12.5 gm UNSCH PRN IV 02/13/17 10:00 (Albumin 25% Inj) 25 gm UNSCH PRN IV 02/13/17 10:00 (NS Flush) 5 ml UNSCH PRN IV FLUSH 8/18/17 10:00 (Heparin Inj) UNSCH PRN .XX 02/13/17 10:00 (Gentamicin (Dialysis) Inj) 20 mg UNSCH PRN IV 02/13/17 10:00 (Zofran Inj) 4 mg UNSCH PRN IV 02/13/17 10:00 (Tylenol) 650 mg UNSCH PRN PO 02/13/17 10:00 (Benadryl) 25 mg UNSCH PRN PO 02/13/17 10:00 (Nitrostat Sl) 0.4 mg UNSCH PRN SL 02/13/17 10:00 (Catapres) 0.1 mg UNSCH PRN PO 02/13/17 10:00 (Gelfoam 12 Mm/7 Mm Top) 1 foam UNSCH PRN TOP 02/13/17 10:00 Family History no hx of renal disorders Social History no smoking or ETOH retired full code ambulatory/independent (Marlena Ambriz) Physical Exam Vital Signs Vital Signs Date Time Temp Pulse Resp B/P Pulse Ox O2 Delivery O2 Flow Rate FiO2 02/13/17 11:50 96.4 63 20 164/68 96 02/13/17 11:00 93 21 02/13/17 07:30 61 16 153/65 94 02/13/17 05:25 98.2 72 16 147/64 93 Physical Exam GENERAL: This is a well-nourished, well-developed patient, in no apparent distress.He is receiving hemodialysis SKIN: No rashes, ecchymoses or lesions. Cool and dry. HEAD: Atraumatic. Normocephalic. No temporal or scalp tenderness. EYES: Pupils equal round and reactive. Extraocular motions intact. No scleral icterus. No injection or drainage. ENT: Nose without bleeding, purulent drainage or septal hematoma. Throat without erythema, tonsillar hypertrophy or exudate. Uvula midline. Airway patent. NECK: Trachea midline. No JVD or lymphadenopathy. Supple, nontender, no meningeal signs. CARDIOVASCULAR: Regular rate and rhythm without murmurs, gallops, or rubs. RESPIRATORY: Clear to auscultation. Breath sounds equal bilaterally. No wheezes , rales, or rhonchi. GASTROINTESTINAL: Abdomen much more distended compared to my previous exam. Mild tenderness to palpation diffusely. Hypoactive bowel sounds. No guarding MUSCULOSKELETAL: Extremities without clubbing, cyanosis, or edema. No joint tenderness, effusion, or edema noted. No calf tenderness. Negative Homans sign bilaterally. NEUROLOGICAL: Awake and alert. Cranial nerves II- XII intact. Motor and sensory grossly within normal limits. 5/5 muscle strength in all muscle groups. Ext: right arm AVF accessed during HD Laboratory Laboratory Tests Test 02/13/17 05:40 White Blood Count 8.9 Red Blood Count 3.44 Hemoglobin 11.6 Hematocrit 33.7 Mean Corpuscular Volume 98.1 Mean Corpuscular Hemoglobin 33.7 Mean Corpuscular Hemoglobin 34.4 Concent Red Cell Distribution Width 12.3 Platelet Count 243 Mean Platelet Volume 9.8 Neutrophils (%) (Auto) 80.7 Lymphocytes (%) (Auto) 9.8 Monocytes (%) (Auto) 8.7 Eosinophils (%) (Auto) 0.0 Basophils (%) (Auto) 0.8 Neutrophils # (Auto) 7.1 Lymphocytes # (Auto) 0.9 Monocytes # (Auto) 0.8 Eosinophils # (Auto) 0.0 Basophils # (Auto) 0.1 CBC Comment DIFF FINAL Differential Comment Sodium Level 138 Potassium Level 3.8 Chloride Level 98 Carbon Dioxide Level 30.0 Anion Gap 10 Blood Urea Nitrogen 32 Creatinine 11.00 Estimat Glomerular Filtration 5 Rate Random Glucose 116 Lactic Acid Level 1.1 Calcium Level 10.0 (Marlena Ambriz) Result Diagram: 02/13/17 0540 02/13/17 0540 Imaging Last Impressions Abdomen/Pelvis CT 02/13/17 0536 Signed Impressions: Service Date/Time: Monday, February 13, 2017 07:10 - CONCLUSION: 1. Dilatation of the proximal and mid small bowel with decompression of the distal small bowel. Oral contrast is seen within the colon. Some degree of partial obstruction needs to be suspected at the region between the mid and distal small bowel. 2. Atelectasis at the left base. There is elevation left hemidiaphragm. 3. The kidneys appear somewhat small. There are possible nodular stone seen bilaterally. 4. Degenerative changes in the lower lumbar spine and at the right hip. Omid Staley MD Small Bowel X-Ray 02/13/17 0000 Signed Impressions: Service Date/Time: Monday, February 13, 2017 13:28 - CONCLUSION: 1. Oral contrast within the colon from the small bowel series performed 2 days ago. This suggests some patency throughout the small bowel and therefore the pattern either relates to a partial small bowel obstruction or to an ileus. 2. Multiple dilated loops of small bowel throughout the abdomen without a focal transition point. 3. The examination was abbreviated due to the patient requiring dialysis. A KUB will be performed after dialysis to see if any of the more distal small bowel is opacified at that time. Tommie Rick Jr., MD (Marlena Ambriz) Assessment and Plan Problem List: (1) ESRD (end stage renal disease) on dialysis Plan: seen during dialysis on a 3K, 350 BFR, goal 2L has AVF for dialysis he is stable from renal perspective no dietary protein restriction can resume outpatient HD if discharged avoid IVF and gadolinium is contraindicated Hb stable, epogen not required resume Renvela per home list when tolerating diet (2) Partial small bowel obstruction Plan: Small bowel Xray and CT reviewed likely has resolution form earlier partial SBO he is having BMs (3) HTN (hypertension) Plan: resume home medications BP is stable (Marlena Ambriz) Problem List: (1) ESRD (end stage renal disease) on dialysis Plan: seen during dialysis on a 3K, 350 BFR, goal 2L has AVF for dialysis he is stable from renal perspective no dietary protein restriction can resume outpatient HD if discharged avoid IVF and gadolinium is contraindicated Hb stable, epogen not required resume Renvela per home list when tolerating diet (2) Partial small bowel obstruction Plan: Small bowel Xray and CT reviewed likely has resolution form earlier partial SBO he is having BMs (3) HTN (hypertension) Plan: resume home medications BP is stable Assessment and Plan patient was seen and examined. Agree with above assessment and plan. Dialysis to be continued MWF. (Daniel Maki MD) Marlena Ambriz Feb 13, 2017 17:42 Daniel Maki MD Feb 13, 2017 21:25
[2017-02-13 20:30] VITALS: O2SAT 95
[2017-02-13 21:10] VITALS: BP 161/73; PULSE 70; RESP 16; TEMP 97.4; O2SAT 97
--- NOTE | 2017-02-13 21:10 | RADRPT ---
EXAM DATE/TIME: 02/13/2017 20:32 [place] COMPARISON: SMALL BOWEL SERIES W/GASTROGRAFIN, February 13, 2017, 13:28. CT ABDOMEN & PELVIS W/O CONTRAST, February 13, 2017, 7:10. SMALL BOWEL SERIES W/GASTROGRAFIN, February 11, 2017, 13:16. INDICATIONS : Follow up to small bowel study completed today. Vomiting. MEDICAL HISTORY : Venous insufficiency. Hypertension. Hypercholesterolemia. Diabetes, renal failure SURGICAL HISTORY : Appendectomy. ENCOUNTER: Subsequent ACUITY: 2 days PAIN SCORE: 0/10 LOCATION: Bilateral abdomen FINDINGS: Most of the enteric contrast from today's small bowel follow-through is now in the colon all the way down to the rectum. The small bowel caliber appears mildly distended, similar to the CT. CONCLUSION: Contrast now in the colon compatible with the ileus or incomplete bowel obstruction. Omid Merlos MD on February 13, 2017 at 21:07 Board Certified Radiologist. This report was verified electronically.
[2017-02-13] MEDS: ATORVASTATIN 40 MG TAB PO SCH (22:09)
[2017-02-13] MEDS: DOXAZOSIN MESYLATE 4 MG TAB PO SCH (22:09)
[2017-02-13] MEDS: SODIUM CHLORIDE 0.9% FLUSH 10 ML FLUSH IV FLUSH SCH (22:10)
[2017-02-13] MEDS: LATANOPROST 0.005% OPHT SOLN 2.5 ML BTL EACH EYE SCH (22:10)
[2017-02-14 01:19] VITALS: BP 125/65; PULSE 74; RESP 20; TEMP 97.9; O2SAT 91
[2017-02-14] MEDS: DEXT 5%-NACL 0.45% 1000 ML INJ 1,000 ML IV SCH ×2 (02:25→20:47)
--- NOTE | 2017-02-14 07:01 | MB ---
cc: MARY BUCKLEY M.D. DATE OF CONSULTATION: 02/13/2017 REASON FOR CONSULTATION Partial small-bowel obstruction. HISTORY OF PRESENT ILLNESS The patient is a 87-year-old -[place] male with history of end-stage renal disease on dialysis and significant history of hypertension. The patient had question of a partial small-bowel obstruction last week and he was discharged 2 days ago. The patient had a small bowel series which did not show obstruction. He has had multiple bowel movements. The repeat CT scan is concerning for partial bowel obstruction once again. PAST SURGICAL HISTORY: Past surgeries include appendectomy in the right knee arthroplasty. MEDICATIONS Multiple and include; Nifedipine 10 mg q. day vitamin D3 1000 units daily. <<1:03>> Fish oil Latanoprost 0.005% eye drops q. day, aspirin 81 mg q. Daily. Lipitor 40 mg p.o. q.h.s. Fluoric 40 mg p.o. daily, Cardura 8 mg p.o. q.h.s. Avapro 300 mg p.o. q. day. ALLERGIES ACETAMINOPHEN CAUSES ITCHING. IBUPROFEN CAUSES ITCHING. MORPHINE CAUSES ITCHING PROPOXYPHENE CAUSES ITCHING. SOCIAL HISTORY: The patient does not use tobacco, alcohol or illicit drugs. PHYSICAL EXAMINATION: IN GENERAL: Physical exam reveals an -[place] male who is in no acute distress. VITAL SIGNS: BP 164/68, pulse 63, respirations 20 temperature 96.4, 96% saturation on room air. HEAD, EYES, EARS, NOSE, AND THROAT: The patient is lying supine on the x-ray table. Sclerae anicteric. CHEST: Chest is clear to auscultation. CARDIOVASCULAR SYSTEM: Cardiac exam reveals regular rate and rhythm. ABDOMEN: Soft, distended but nontender. There are no hernias appreciated. Pulses are present. EXTREMITIES: The patient has a AV graft in the left arm. LABORATORY VALUES: Demonstrate WBCs of 8.9, platelets are 243,000. Chemistries demonstrate BUN of 32, creatinine 11, potassium is 3.8. IMAGING: Imaging with CT of the abdomen and pelvis today demonstrates proximal and mid small bowel distended measuring over 3 cm in diameter with the distal small bowel decompressed. There is a transition point seen with some degree of partial obstruction needed to be considered. Small bowel x-ray was obtained which demonstrates oral contrast within the colon with multiple dilated loops of small bowel throughout the abdomen without focal point. The patient does have some dilated gas-filled loops of unopacified distal small bowel at 2 hours. The patient was undergoing dialysis. Contrast was in the colon compatible with an ileus for incomplete partial small-bowel obstruction. ASSESSMENT/PLAN: Most likely ileus or very low grade partial obstruction. Given the patient's lack of previous surgeries, I am inclined to believe an ileus as the primary problem. We will make sure that the patient continues to have active bowel regimen. We will follow with you. A do not believe surgical intervention will be terribly helpful in this individual. MD ADI Nolen/deyvi /11:33 PM /6:44 AM MTDD
[2017-02-14 07:11] LABS: AUTOMATED NEUTROPHIL # 6.5 TH/MM3 (1.8-7.7); BASOPHIL % 0.3 % (0.0-2.0); HEMATOCRIT 32.1 % (39.0-51.0); HEMO FLAGS DIFF FINAL; LYMPH % 14.8 % (9.0-44.0); LYMPHOCYTE # 1.3 TH/MM3 (1.0-4.8); MEAN CELL VOLUME 99.4 FL (80.0-100.0); MEAN CORPUSCULAR HEMOGLOBIN 32.8 PG (27.0-34.0); MONO % 9.3 % (0.0-8.0); NEUT % 75.6 % (16.0-70.0); PLATELET COUNT 259 TH/MM3 (150-450); RED BLOOD COUNT 3.23 MIL/MM3 (4.50-5.90); RED CELL DISTRIBUTION WIDTH 12.2 % (11.6-17.2); WHITE BLOOD COUNT 8.6 TH/MM3 (4.0-11.0)
[2017-02-14 07:22] LABS: POTASSIUM 3.4 MEQ/L (3.5-5.1)
[2017-02-14 07:30] LABS: BICARBONATE 32.6 MEQ/L (21.0-32.0)
[2017-02-14 08:00] VITALS: BP 147/61; PULSE 72; RESP 18; TEMP 97.9; O2SAT 92
[2017-02-14 08:10] VITALS: O2SAT 93
[2017-02-14] MEDS ORDERED: COQ10 PO SCH (09:00)
[2017-02-14] MEDS ORDERED: [UNRECOGNIZED DRUG - OTHER] PO SCH (09:00)
[2017-02-14] MEDS: SODIUM CHLORIDE 0.9% FLUSH 10 ML FLUSH IV FLUSH SCH ×2 (09:00→21:00)
[2017-02-14] MEDS ORDERED: MV MN PO SCH (09:00)
[2017-02-14] MEDS ORDERED: LUTEIN PO SCH (09:00)
[2017-02-14] MEDS ORDERED: LYCOPENE PO SCH (09:00)
[2017-02-14] MEDS ORDERED: NON-FORMULARY DRUG (Omega-3 Fatty Acids (Fish Oil) 1 CAP) PO SCH (09:00)
[2017-02-14] MEDS ORDERED: FEBUXOSTAT PO SCH (09:00)
[2017-02-14] MEDS: NIFEdipine 90 MG SUSTAINED RELEASE TAB PO SCH (09:36)
[2017-02-14] MEDS: LOSARTAN 50 MG TAB PO SCH (09:36)
[2017-02-14] MEDS: ASPIRIN 81 MG CHEW TAB CHEW SCH (09:37)
[2017-02-14 12:00] VITALS: BP 138/72; PULSE 75; RESP 19; TEMP 97.7; O2SAT 94
[2017-02-14] MEDS ORDERED: POTASSIUM CHLORIDE 10 MEQ CONTROLLED RELEASE TAB PO ONE (12:30)
--- NOTE | 2017-02-14 12:31 | HHI.PR ---
Subjective Remarks The patient states that his abdomen feels less distended today. He states he is passing copious gas. No bowel movement yet. He denies any abdominal pain nausea or vomiting. Objective Vitals Vital Signs Date Time Temp Pulse Resp B/P Pulse Ox O2 Delivery O2 Flow Rate FiO2 02/14/17 08:10 93 21 02/14/17 08:00 97.9 72 18 147/61 92 02/14/17 01:19 97.9 74 20 125/65 91 02/13/17 21:10 97.4 70 16 161/73 97 02/13/17 20:30 95 21 I/O 02/13/17 02/13/17 02/13/17 02/14/17 02/14/17 02/14/17 06:59 14:59 22:59 06:59 14:59 22:59 Intake Total 0 ml Output Total 2000 ml Balance 0 ml -2000 ml Intake Oral 0 ml Output Hemodialysis 2000 ml # Voids 1 1 Result Diagram: 02/14/17 0544 02/14/17 0544 Objective Remarks GENERAL: Well-nourished, well-developed very pleasant elderly male patient. SKIN: Warm and dry. HEAD: Normocephalic. EYES: No scleral icterus. No injection or drainage. NECK: Supple, trachea midline. No JVD or lymphadenopathy. CARDIOVASCULAR: Regular rate and rhythm without murmurs, gallops, or rubs. RESPIRATORY: Breath sounds equal bilaterally. No accessory muscle use. GASTROINTESTINAL: Bowel sounds are normoactive in all 4 quadrants. Abdomen mildly distended, but soft, nontender. EXTREMITIES: No cyanosis, or edema. NEUROLOGICAL: Awake, alert, and oriented x 3. Non-focal. A/P Problem List: (1) Partial small bowel obstruction ICD Code: K56.69 Status: Acute (2) HTN (hypertension) ICD Code: I10 Status: Acute (3) ESRD (end stage renal disease) on dialysis ICD Code: N18.6 Status: Acute Assessment and Plan 87-year-old male admitted for persistent partial small bowel obstruction. This is the patient's second admission. Patient also has hypertension, end-stage renal disease on hemodialysis. -partial SBO versus ileus: Patient was recently admitted for the same and was discharged 2 days ago. He was treated conservatively. A small bowel study did not reveal a complete obstruction. He had multiple bowel movements. He came back with the same symptoms. Repeat CT concerning for partial obstruction. - general surgery following If vomiting, would put NGT - Gentle IVF. Pain control. Antiemetics as needed. ESRD on hemodialysis: Consult nephrology for dialysis. -HTN Continue nifedipine 90 mg daily and losartan. -Hypokalemia - give Kcl 10 meq PO x 1, repeat BMP in a.m. -DVT px - SCDs Maria Luisa Mcnamara MD Feb 14, 2017 12:31
[2017-02-14 16:00] VITALS: BP 107/65; PULSE 79; RESP 18; TEMP 97.9; O2SAT 94
[2017-02-14 20:00] VITALS: BP 150/63; PULSE 70; RESP 18; TEMP 98.3; O2SAT 93
--- NOTE | 2017-02-14 20:06 | HHI.PR ---
Subjective Subjective Notes Reports vomiting during dialysis yesterday; none since Not nauseous now Reports flatus and some BM Objective Vitals/I&O Vital Signs Date Time Temp Pulse Resp B/P Pulse Ox O2 Delivery O2 Flow Rate FiO2 02/14/17 16:00 97.9 79 18 107/65 94 02/14/17 08:10 21 Labs Laboratory Tests Test 02/14/17 05:44 White Blood Count 8.6 Red Blood Count 3.23 Hemoglobin 10.6 Hematocrit 32.1 Mean Corpuscular Volume 99.4 Mean Corpuscular Hemoglobin 32.8 Mean Corpuscular Hemoglobin 33.0 Concent Red Cell Distribution Width 12.2 Platelet Count 259 Mean Platelet Volume 9.8 Neutrophils (%) (Auto) 75.6 Lymphocytes (%) (Auto) 14.8 Monocytes (%) (Auto) 9.3 Eosinophils (%) (Auto) 0.0 Basophils (%) (Auto) 0.3 Neutrophils # (Auto) 6.5 Lymphocytes # (Auto) 1.3 Monocytes # (Auto) 0.8 Eosinophils # (Auto) 0.0 Basophils # (Auto) 0.0 CBC Comment DIFF FINAL Differential Comment Sodium Level 140 Potassium Level 3.4 Chloride Level 99 Carbon Dioxide Level 32.6 Anion Gap 8 Blood Urea Nitrogen 22 Creatinine 8.20 Estimat Glomerular Filtration 8 Rate Random Glucose 76 Calcium Level 9.0 Abdomen: Non-tender, Other (Soft, but distended) A/P Problem List: (1) Abdominal distention (2) HTN (hypertension) (3) ESRD (end stage renal disease) on dialysis (4) Partial small bowel obstruction Assessment and Plan Partial small bowel obstruction SBS shows contrast reaching colon within 3 hrs. Will start on clears May need to transfer to [facility] if he fails diet for laparoscopy Dayron Olivera MD Feb 14, 2017 20:06
[2017-02-14] MEDS: DOXAZOSIN MESYLATE 4 MG TAB PO SCH (20:47)
[2017-02-14] MEDS: ATORVASTATIN 40 MG TAB PO SCH (20:47)
[2017-02-14] MEDS: LATANOPROST 0.005% OPHT SOLN 2.5 ML BTL EACH EYE SCH (20:47)
--- NOTE | 2017-02-14 22:01 | HHI.NPPN ---
Subjective Additional Remarks No acute complaints, tolerating clear liquids Objective Data Data 02/13/17 02/14/17 19:00 07:00 Intake Total 0 ml Output Total 2000 ml Balance 0 ml -2000 ml Intake Oral 0 ml Output Hemodialysis 2000 ml # Voids 1 1 Vital Signs Date Time Temp Pulse Resp B/P Pulse Ox O2 Delivery O2 Flow Rate FiO2 02/14/17 16:00 97.9 79 18 107/65 94 02/14/17 12:00 97.7 75 19 02/14/17 12:00 97.7 75 19 138/72 94 02/14/17 08:10 93 21 02/14/17 08:00 97.9 72 18 147/61 92 02/14/17 01:19 97.9 74 20 125/65 91 -: 02/14/17 0544 02/14/17 0544 Physical Exam General Appearance: Well Developed, Well Nourished, No Acute Distress Throat Throat Exam: Oral Mucosa [place] & Moist Neck Neck Exam: Neck Supple Pulmonary Resp Exam: Clear Bilaterally Cardiology CV Exam: Regular, Normal Sinus Rhythm Gastrointestinal/Abdomen GI Exam: Soft Integumentary Skin Exam: Warm, Dry, Intact Extremeties Extremities Exam: No Edema Neurologic Neuro Exam: Alert, Awake, Oriented, Speech Clear, Moving All Extremities Assessment/Plan Problem List: (1) ESRD (end stage renal disease) on dialysis Plan: HD done yesterday, volume status and electrolytes stable. Plan next HD Thursday, continue MWF HD. he is stable from renal perspective On clear liquids now, no dietary protein restriction avoid IVF and gadolinium is contraindicated Hgb stable, epogen not required resume Renvela per home list when tolerating diet (2) Partial small bowel obstruction Plan: Small bowel Xray and CT reviewed likely has resolution form earlier partial SBO he is having BMs Continue to follow with surgery (3) HTN (hypertension) Plan: resume home medications BP is stable Leonel Juarez MD Feb 14, 2017 22:01
[2017-02-15 00:26] VITALS: BP 150/66; PULSE 66; RESP 20; TEMP 98.4; O2SAT 93
[2017-02-15 06:11] LABS: POTASSIUM 3.4 MEQ/L (3.5-5.1)
[2017-02-15 06:18] LABS: BICARBONATE 31.2 MEQ/L (21.0-32.0)
[2017-02-15 07:44] VITALS: BP 146/74; PULSE 69; RESP 16; TEMP 98.3; O2SAT 92
[2017-02-15] MEDS: ASPIRIN 81 MG CHEW TAB CHEW SCH (09:00)
[2017-02-15] MEDS: NIFEdipine 90 MG SUSTAINED RELEASE TAB PO SCH (09:00)
[2017-02-15] MEDS: SODIUM CHLORIDE 0.9% FLUSH 10 ML FLUSH IV FLUSH SCH ×2 (09:00→20:20)
[2017-02-15] MEDS: LOSARTAN 50 MG TAB PO SCH (09:00)
--- NOTE | 2017-02-15 13:22 | HHI.PR ---
Subjective Remarks The patient was seen at 1125 this morning. He states that he had a bowel movement this morning. Abdomen is less distended. He denies nausea vomiting or abdominal pain. He ambulated throughout the halls. Objective Vitals Vital Signs Date Time Temp Pulse Resp B/P (MAP) Pulse Ox O2 Delivery O2 Flow Rate FiO2 02/15/17 07:44 98.3 69 16 146/74 (98) 92 02/15/17 04:19 02/15/17 00:26 98.4 66 20 150/66 (94) 93 02/14/17 20:00 98.3 70 18 150/63 (92) 93 02/14/17 16:00 97.9 79 18 107/65 (79) 94 I/O 02/14/17 02/14/17 02/14/17 02/15/17 02/15/17 02/15/17 07:00 15:00 23:00 07:00 15:00 23:00 Intake Total 2 ml Balance 2 ml IV Total 2 ml # Voids 1 3 # Bowel Movements 1 Result Diagram: 02/14/17 0544 02/15/17 0514 Objective Remarks GENERAL: Well-nourished, well-developed very pleasant elderly male patient. SKIN: Warm and dry. HEAD: Normocephalic. EYES: No scleral icterus. No injection or drainage. NECK: Supple, trachea midline. No JVD or lymphadenopathy. CARDIOVASCULAR: Regular rate and rhythm without murmurs, gallops, or rubs. RESPIRATORY: Breath sounds equal bilaterally. No accessory muscle use. GASTROINTESTINAL: Bowel sounds are normoactive in all 4 quadrants. Abdomen mildly distended, but soft, nontender. EXTREMITIES: No cyanosis, or edema. NEUROLOGICAL: Awake, alert, and oriented x 3. Non-focal. A/P Problem List: (1) Partial small bowel obstruction ICD Code: K56.69 - Other intestinal obstruction Status: Acute (2) HTN (hypertension) ICD Code: I10 - Essential (primary) hypertension Status: Acute (3) ESRD (end stage renal disease) on dialysis ICD Code: N18.6 - End stage renal disease; Z99.2 - Dependence on renal dialysis Status: Acute Assessment and Plan 87-year-old male admitted for persistent partial small bowel obstruction. This is the patient's second admission. Patient also has hypertension, end-stage renal disease on hemodialysis. -partial SBO versus ileus: Patient was recently admitted for the same and was discharged 2 days ago. He was treated conservatively. A small bowel study did not reveal a complete obstruction. He had multiple bowel movements. He came back with the same symptoms. Repeat CT concerning for partial obstruction. - general surgery following Appears to be improving as he had a bowel movement this morning. - Gentle IVF. Pain control. Antiemetics as needed. ESRD on hemodialysis: nephrology following for dialysis. -HTN Continue nifedipine 90 mg daily and losartan. -Hypokalemia -will repeat Kcl 10 meq PO x 1, repeat BMP in a.m. -DVT px - SCDs Maria Luisa Mcnamara MD Feb 15, 2017 13:22
[2017-02-15] MEDS ORDERED: POTASSIUM CHLORIDE 10 MEQ CAP PO ONE (14:00)
[2017-02-15 16:00] VITALS: BP 142/63; PULSE 75; RESP 17; TEMP 97.5; O2SAT 95
--- NOTE | 2017-02-15 18:48 | HHI.PR ---
Subjective Subjective Notes DAILY PROGRESS NOTE FOR SURGICAL ATTENDING, DR. LAUREN BLACKWELL Patient sitting up Tolerating liquid diet Abdomen soft Having bowel movements Objective Vitals/I&O Vital Signs Date Time Temp Pulse Resp B/P (MAP) Pulse Ox O2 Delivery O2 Flow Rate FiO2 02/15/17 16:00 97.5 75 17 142/63 (89) 95 02/14/17 08:10 21 Labs Laboratory Tests Test 02/15/17 05:14 Blood Urea Nitrogen 26 Creatinine 9.80 Random Glucose 97 Albumin 3.2 Calcium Level 9.2 Phosphorus Level 2.9 Sodium Level 137 Potassium Level 3.4 Chloride Level 99 Carbon Dioxide Level 31.2 Anion Gap 7 Estimat Glomerular Filtration Rate 6 Radiology Last Impressions Abdomen/Pelvis CT 02/13/17 0536 Signed Impressions: Service Date/Time: Monday, February 13, 2017 07:10 - CONCLUSION: 1. Dilatation of the proximal and mid small bowel with decompression of the distal small bowel. Oral contrast is seen within the colon. Some degree of partial obstruction needs to be suspected at the region between the mid and distal small bowel. 2. Atelectasis at the left base. There is elevation left hemidiaphragm. 3. The kidneys appear somewhat small. There are possible nodular stone seen bilaterally. 4. Degenerative changes in the lower lumbar spine and at the right hip. Omid Staley MD Small Bowel X-Ray 02/13/17 0000 Signed Impressions: Service Date/Time: Monday, February 13, 2017 13:28 - CONCLUSION: 1. Oral contrast within the colon from the small bowel series performed 2 days ago. This suggests some patency throughout the small bowel and therefore the pattern either relates to a partial small bowel obstruction or to an ileus. 2. Multiple dilated loops of small bowel throughout the abdomen without a focal transition point. 3. The examination was abbreviated due to the patient requiring dialysis. A KUB will be performed after dialysis to see if any of the more distal small bowel is opacified at that time. Tommie Rick Jr., MD Abdomen X-Ray 02/13/17 0000 Signed Impressions: Service Date/Time: Monday, February 13, 2017 20:32 - CONCLUSION: Contrast now in the colon compatible with the ileus or incomplete bowel obstruction. Omid Merlos MD Cardiovascular: Regular Lungs: Clear Abdomen: Non-distended, Other (abdomen soft), BS normal A/P Problem List: (1) Partial small bowel obstruction ICD Codes: K56.69 - Other intestinal obstruction Status: Resolved (2) Abdominal distention ICD Codes: R14.0 - Abdominal distension (gaseous) Status: Resolved (3) HTN (hypertension) ICD Codes: I10 - Essential (primary) hypertension Status: Acute (4) ESRD (end stage renal disease) on dialysis ICD Codes: N18.6 - End stage renal disease; Z99.2 - Dependence on renal dialysis Status: Acute Assessment and Plan Partial small bowel obstruction that has resolved SBS shows contrast reaching colon within 3 hrs. Advance diet Anticipate Discharge tomorrow Discharge Planning I suspect he will be able discharged on Thursday Attending Statement NOTE FOR SURGICAL ATTENDING, DR. LAUREN BLACKWELL I attest that I had a [id number] encounter with the patient on the same day, and personally performed and documented my assessment and findings in the medical record. The following services were provided during this hospital visit: Chart data review, vital sign assessments/reviewing monitor data Review of consultations notes if present. Medication orders/review and/or management Ordering and/or reviewing lab tests Ordering and/or interpreting/reviewing x-rays and/or diagnostic studies Care of the patient and discussion of the patient with the care team Documentation time To help prompt me to consider important information that might be impacting today's encounter and assessment, information from prior notes written by myself or my colleagues may have been "brought forward/copy and pasted" into today's note. Lauren Blackwell MD Feb 15, 2017 18:48
--- NOTE | 2017-02-15 19:04 | HHI.NPPN ---
Subjective Additional Remarks No acute complaints,had bowel movement Objective Data Data 02/15/17 02/16/17 19:00 07:00 Intake Total 2 ml Balance 2 ml IV Total 2 ml Vital Signs Date Time Temp Pulse Resp B/P (MAP) Pulse Ox O2 Delivery O2 Flow Rate FiO2 02/15/17 16:00 97.5 75 17 142/63 (89) 95 02/15/17 07:44 98.3 69 16 146/74 (98) 92 02/15/17 04:19 02/15/17 00:26 98.4 66 20 150/66 (94) 93 02/14/17 20:00 98.3 70 18 150/63 (92) 93 -: 02/14/17 0544 02/15/17 0514 Physical Exam General Appearance: Well Developed, Well Nourished, No Acute Distress Throat Throat Exam: Oral Mucosa [place] & Moist Neck Neck Exam: Neck Supple Pulmonary Resp Exam: Clear Bilaterally Cardiology CV Exam: Regular, Normal Sinus Rhythm Gastrointestinal/Abdomen GI Exam: Soft Integumentary Skin Exam: Warm, Dry, Intact Extremeties Extremities Exam: No Edema Neurologic Neuro Exam: Alert, Awake, Oriented, Speech Clear, Moving All Extremities Assessment/Plan Problem List: (1) ESRD (end stage renal disease) on dialysis ICD Codes: N18.6 - End stage renal disease; Z99.2 - Dependence on renal dialysis Status: Acute Plan: HD done Thursday, volume status and electrolytes stable. Plan next HD Thursday, continue MWF HD. he is stable from renal perspective. If plan for d/c tomorrow, can d/c after dialysis. Tolerating PO now avoid IVF and gadolinium is contraindicated Hgb stable, epogen not required (2) Partial small bowel obstruction ICD Codes: K56.69 - Other intestinal obstruction Status: Resolved Plan: Small bowel Xray and CT reviewed likely has resolution form earlier partial SBO he is having BMs Continue to follow with surgery (3) HTN (hypertension) ICD Codes: I10 - Essential (primary) hypertension Status: Acute Plan: resume home medications BP is stable Leonel Juarez MD Feb 15, 2017 19:04
[2017-02-15] MEDS: ATORVASTATIN 40 MG TAB PO SCH (20:19)
[2017-02-15] MEDS: DOXAZOSIN MESYLATE 4 MG TAB PO SCH (20:19)
[2017-02-15] MEDS: LATANOPROST 0.005% OPHT SOLN 2.5 ML BTL EACH EYE SCH (20:20)
[2017-02-15 20:21] VITALS: BP 156/71; PULSE 71; RESP 16; TEMP 98; O2SAT 97
[2017-02-16 00:07] VITALS: BP 138/76; PULSE 68; RESP 18; TEMP 98.4; O2SAT 98
[2017-02-16 05:59] LABS: POTASSIUM 3.4 MEQ/L (3.5-5.1)
[2017-02-16 08:00] VITALS: BP 154/72; PULSE 66; RESP 22; TEMP 97.7; O2SAT 97
[2017-02-16] MEDS: LOSARTAN 50 MG TAB PO SCH ×2 (09:00→10:23)
--- NOTE | 2017-02-16 09:22 | HHI.PR ---
Subjective Subjective Notes Resting in bed +BM Tolerating dinner last night without any issues Objective Vitals/I&O Vital Signs Date Time Temp Pulse Resp B/P (MAP) Pulse Ox O2 Delivery O2 Flow Rate FiO2 02/16/17 08:00 97.7 66 22 154/72 (99) 97 02/14/17 08:10 21 Labs Laboratory Tests Test 02/16/17 05:35 Blood Urea Nitrogen 30 Creatinine 11.00 Random Glucose 104 Albumin 3.5 Calcium Level 10.1 Phosphorus Level 3.0 Sodium Level 135 Potassium Level 3.4 Chloride Level 97 Carbon Dioxide Level 29.0 Anion Gap 9 Estimat Glomerular Filtration Rate 5 Radiology Last Impressions Abdomen/Pelvis CT 02/13/17 0536 Signed Impressions: Service Date/Time: Monday, February 13, 2017 07:10 - CONCLUSION: 1. Dilatation of the proximal and mid small bowel with decompression of the distal small bowel. Oral contrast is seen within the colon. Some degree of partial obstruction needs to be suspected at the region between the mid and distal small bowel. 2. Atelectasis at the left base. There is elevation left hemidiaphragm. 3. The kidneys appear somewhat small. There are possible nodular stone seen bilaterally. 4. Degenerative changes in the lower lumbar spine and at the right hip. Omid Staley MD Small Bowel X-Ray 02/13/17 0000 Signed Impressions: Service Date/Time: Monday, February 13, 2017 13:28 - CONCLUSION: 1. Oral contrast within the colon from the small bowel series performed 2 days ago. This suggests some patency throughout the small bowel and therefore the pattern either relates to a partial small bowel obstruction or to an ileus. 2. Multiple dilated loops of small bowel throughout the abdomen without a focal transition point. 3. The examination was abbreviated due to the patient requiring dialysis. A KUB will be performed after dialysis to see if any of the more distal small bowel is opacified at that time. Tommie Rick Jr., MD Abdomen X-Ray 02/13/17 0000 Signed Impressions: Service Date/Time: Monday, February 13, 2017 20:32 - CONCLUSION: Contrast now in the colon compatible with the ileus or incomplete bowel obstruction. Omid Merlos MD Cardiovascular: Regular Lungs: Clear Abdomen: Non-distended, Non-tender Extremities: No edema A/P Problem List: (1) Partial small bowel obstruction ICD Codes: K56.69 - Other intestinal obstruction Status: Resolved (2) Abdominal distention ICD Codes: R14.0 - Abdominal distension (gaseous) Status: Resolved (3) HTN (hypertension) ICD Codes: I10 - Essential (primary) hypertension Status: Acute (4) ESRD (end stage renal disease) on dialysis ICD Codes: N18.6 - End stage renal disease; Z99.2 - Dependence on renal dialysis Status: Acute Assessment and Plan 87 year old male with SBO; resolved -Tolerating regular renal diet -+BM -Abdominal exam benign -SBO resolved without operation -GS clear for DC -Follow up with Dr. Olivera next Thursday Attending Note - Dr. Olivera Abdomen soft and nontender The exam, history, and the medical decision-making described in the above note were completed with the assistance of the mid-level provider. I reviewed and agree with the findings presented. I attest that I had a [id number] encounter with the patient on the same day, and personally performed and documented my assessment and findings in the medical record. Judy Hays Feb 16, 2017 09:22 Dayron Olivera MD Mar 02, 2017 17:15
--- NOTE | 2017-02-16 09:33 | HHI.PR ---
Subjective Remarks Patient states he is doing well, eating well, had a bowel movement last night. For dialysis today. He is hoping to go home today. Objective Vitals Vital Signs Date Time Temp Pulse Resp B/P (MAP) Pulse Ox O2 Delivery O2 Flow Rate FiO2 02/16/17 08:00 97.7 66 22 154/72 (99) 97 02/16/17 04:36 02/16/17 00:07 98.4 68 18 138/76 (96) 98 02/15/17 20:21 98.0 71 16 156/71 (99) 97 02/15/17 16:00 97.5 75 17 142/63 (89) 95 I/O 02/15/17 02/15/17 02/15/17 02/16/17 02/16/17 02/16/17 07:00 15:00 23:00 07:00 15:00 23:00 Intake Total 2 ml Output Total 100 ml Balance 2 ml -100 ml IV Total 2 ml Output Urine Total 100 ml # Voids 2 # Bowel Movements 2 1 Result Diagram: 02/14/17 0544 02/16/17 0535 Objective Remarks GENERAL: Well-nourished, well-developed very pleasant elderly male patient. SKIN: Warm and dry. HEAD: Normocephalic. EYES: No scleral icterus. No injection or drainage. NECK: Supple, trachea midline. No JVD or lymphadenopathy. CARDIOVASCULAR: Regular rate and rhythm without murmurs, gallops, or rubs. RESPIRATORY: Breath sounds equal bilaterally. No accessory muscle use. GASTROINTESTINAL: Bowel sounds are normoactive in all 4 quadrants. Abdomen mildly distended, but soft, nontender. EXTREMITIES: No cyanosis, or edema. NEUROLOGICAL: Awake, alert, and oriented x 3. Non-focal. A/P Problem List: (1) Partial small bowel obstruction ICD Code: K56.69 - Other intestinal obstruction Status: Resolved (2) HTN (hypertension) ICD Code: I10 - Essential (primary) hypertension Status: Acute (3) ESRD (end stage renal disease) on dialysis ICD Code: N18.6 - End stage renal disease; Z99.2 - Dependence on renal dialysis Status: Acute Assessment and Plan 87-year-old male admitted for persistent partial small bowel obstruction. This is the patient's second admission. Patient also has hypertension, end-stage renal disease on hemodialysis. -partial SBO versus ileus: - general surgery following Appears to be now resolved as he had a bowel movement this morning. -Possible discharge today if cleared by general surgery ESRD on hemodialysis: nephrology following for dialysis. -HTN Continue nifedipine 90 mg daily and losartan. -Hypokalemia, mild -will give Kcl 30 meq PO x 1. -DVT px - SCDs Maria Luisa Mcnamara MD Feb 16, 2017 09:33
[2017-02-16] MEDS ORDERED: POTASSIUM CHLORIDE 10 MEQ CONTROLLED RELEASE TAB PO ONE (10:00)
--- NOTE | 2017-02-16 10:12 | HHI.DS ---
Discharge Summary Admission Date Feb 13, 2017 at 08:41 Discharge Date: Feb 16, 2017 Admitting Diagnosis partial SBO (1) Partial small bowel obstruction ICD Code: K56.69 - Other intestinal obstruction Status: Resolved (2) HTN (hypertension) ICD Code: I10 - Essential (primary) hypertension Status: Acute (3) ESRD (end stage renal disease) on dialysis ICD Code: N18.6 - End stage renal disease; Z99.2 - Dependence on renal dialysis Status: Acute Procedures None Brief History - From Admission 87-year-old male with a medical history significant for hypertension, end-stage renal disease on dialysis. The patient was discharged 2 days ago after he was admitted for partial bowel obstruction. He was treated conservatively. A small bowel series was done which did not show an obstruction. He had multiple bowel movements. The patient returned with complaint of worsening abdominal pain and nausea. Repeat CT in the emergency room is again concerning for partial bowel obstruction. CBC/BMP: 02/14/17 0544 02/16/17 0535 Significant Findings Laboratory Tests Test 02/14/17 05:44 02/15/17 05:14 02/16/17 05:35 Red Blood Count 3.23 MIL/MM3 (4.50-5.90) Hemoglobin 10.6 GM/DL (13.0-17.0) Hematocrit 32.1 % (39.0-51.0) Neutrophils (%) (Auto) 75.6 % (16.0-70.0) Monocytes (%) (Auto) 9.3 % (0.0-8.0) Blood Urea Nitrogen 22 MG/DL (7-18) 26 MG/DL (7-18) 30 MG/DL (7-18) Creatinine 8.20 MG/DL (0.60-1.30) 9.80 MG/DL (0.60-1.30) 11.00 MG/DL (0.60-1.30) Potassium Level 3.4 MEQ/L (3.5-5.1) 3.4 MEQ/L (3.5-5.1) 3.4 MEQ/L (3.5-5.1) Carbon Dioxide Level 32.6 MEQ/L (21.0-32.0) Estimat Glomerular Filtration Rate 8 ML/MIN (>89) 6 ML/MIN (>89) 5 ML/MIN (>89) Albumin 3.2 GM/DL (3.4-5.0) Sodium Level 135 MEQ/L (136-145) Chloride Level 97 MEQ/L (98-107) PE at Discharge GENERAL: Well-nourished, well-developed very pleasant elderly male patient. SKIN: Warm and dry. HEAD: Normocephalic. EYES: No scleral icterus. No injection or drainage. NECK: Supple, trachea midline. No JVD or lymphadenopathy. CARDIOVASCULAR: Regular rate and rhythm without murmurs, gallops, or rubs. RESPIRATORY: Breath sounds equal bilaterally. No accessory muscle use. GASTROINTESTINAL: Bowel sounds are normoactive in all 4 quadrants. Abdomen mildly distended, but soft, nontender. EXTREMITIES: No cyanosis, or edema. NEUROLOGICAL: Awake, alert, and oriented x 3. Non-focal. Hospital Course The patient was admitted to the hospital, general surgery was consulted. He did not require an NG tube. Nephrology was consulted for dialysis for his chronic end-stage renal disease. Follow-up imaging showed contrast in the colon. He has had multiple bowel movements and is tolerating regular diet. He is cleared for discharge home with general surgery and is to follow-up with Dr. Olivera next week. The patient will be discharged home. Pt Condition on Discharge: Stable Discharge Disposition: Discharge Home Discharge Time: > 30 minutes Discharge Instructions DIET: Follow Instructions for: Renal Failure Diet Activities you can perform: Regular-No Restrictions Follow up Referrals: Surgical - 02/23/17 with Dayron Olivera MD Continued Medications: Aspirin (Aspirin) 81 Mg Chew 81 MG CHEW DAILY for Blood Clot Prevention, TAB 0 Refills Atorvastatin (Lipitor) 40 Mg Tab 40 MG PO HS for Cholesterol Management, #30 TAB 0 Refills Cholecalciferol (Vitamin D3) 1,000 Unit Chew 1000 UNITS CHEW DAILY for Nutritional Supplement, #1 BOTTLE 0 Refills Doxazosin (Cardura) 8 Mg Tab 8 MG PO HS for Blood Pressure Management, #30 TAB 0 Refills Febuxostat (Uloric) 40 Mg Tab 1 TAB PO DAILY Irbesartan (Avapro) 300 Mg Tab 300 MG PO DAILY for Blood Pressure Management, #30 TAB 0 Refills Latanoprost Opth Drops (Latanoprost Opth Drops) 0.005% Drops 1 DROP EACH EYE HS for Glaucoma, #2.5 ML 0 Refills Refrigerate until opened. Mv-Mn/FA/Coq10/Lycopene/Lutein (Theragran-M Premier 50+ Caplet) 1 Each Tablet 1 TAB PO DAILY for Nutritional Supplement Nifedipine (Nifedipine) 10 Mg Cap 30 MG PO DAILY for Chest Pain, #120 CAP 0 Refills [place]-3 Fatty Acids (Fish Oil) 500 Mg Cap 1 CAP PO DAILY for Nutritional Supplement Sennosides-Docusate Sodium (Senna Plus 8.6-50 mg) 1 Tab Tab 1 TAB PO BID, #60 TAB [Lactulose Liq] () 30 ML SYRP 30 ML PO DAILY PRN for SEVERE CONSITIPATION for 10 Days, Maria Luisa Donaldson MD Feb 16, 2017 10:11
[2017-02-16] MEDS: NIFEdipine 90 MG SUSTAINED RELEASE TAB PO SCH (10:22)
[2017-02-16] MEDS: ASPIRIN 81 MG CHEW TAB CHEW SCH (10:23)
[2017-02-16] MEDS: SODIUM CHLORIDE 0.9% FLUSH 10 ML FLUSH IV FLUSH SCH (10:23)
== END 2017-02-16 11:18 | disposition home or self-care (01) | DRG 388 ==
LOC: PHED 05:25 → PHEDA 08:41 → PH3A 10:56
PROVIDERS: ADMIT Family Medicine; ATTEND Family Medicine
PROC: 5A1D60Z (ICD-10-PCS; principal; 2017-02-13)
DX: K56.69 Other intestinal obstruction (principal); N18.6 End stage renal disease; E11.22 Type 2 diabetes mellitus with diabetic chronic kidney disease; N25.81 Secondary hyperparathyroidism of renal origin; I12.0 Hypertensive chronic kidney disease with stage 5 chronic kidney disease or end stage renal disease; G47.30 Sleep apnea, unspecified; Z99.2 Dependence on renal dialysis; M19.90 Unspecified osteoarthritis, unspecified site; K21.9 Gastro-esophageal reflux disease without esophagitis; E78.00 Pure hypercholesterolemia, unspecified; Z96.651 Presence of right artificial knee joint; E87.6 Hypokalemia
CPT/HCPCS: 74000; 74176; 74250; 80048; 80069; 83605; 85025; 90935; 96374; J2405; Q9963